=== PATIENT | male | born 1970 | race Caucasian/White ===

== ENCOUNTER 2018-04-01 16:53 | Inpatient (IN) | payer MEDICARE, MEDICAID ==
--- NOTE | 2018-04-01 17:38 | ED ---
Psych HPI - General Chief Complaint: Psychiatric Symptoms Stated Complaint: EPS eval Time Seen by Provider: 04/01/18 17:22 Source: patient, police, EMS, RN notes reviewed Mode of arrival: wheelchair - History of Present Illness Initial Comments: This a 48-year-old male history of bipolar disorder and schizophrenia who is brought in by police and petitioned because of threatening behavior throwing things. He's been threatening staff members. He's been hearing voices. He is here under petition. He does have a history of alcohol abuse and encephalopathy. No fevers chills nausea vomiting sweats. He's been in the [facility] home for just several days apparently. MD Complaint: other - Related Data Home Medications Medication Instructions Recorded Confirmed LORazepam [Ativan] 2 mg PO BID PRN 04/02/18 04/02/18 [place] Carbonate 300 mg PO TID@0600,1400,199904/02/18 04/02/18 Multivitamins, Thera [Multivitamin 1 tab PO DAILY@0600 04/02/18 04/02/18 (formulary)] OLANZapine [ZyPREXA] 20 mg PO BID@0600,1800 04/02/18 04/02/18 clonazePAM [KlonoPIN] 1 mg PO TID@0600,1400,199904/02/18 04/02/18 traMADol HCL [Ultram] 50 mg PO BID PRN 04/02/18 04/02/18 traZODone HCL 50 mg PO HS@1999 PRN 04/02/18 04/02/18 Allergies Allergy/AdvReac Type Severity Reaction Status Date / Time divalproex sodium Allergy Unknown Verified 04/02/18 07:28 [From Depakote] ibuprofen Allergy Unknown Verified 04/02/18 07:28 Review of Systems ROS Statement: Those systems with pertinent positive or pertinent negative responses have been documented in the HPI. ROS Other: All systems not noted in ROS Statement are negative. Past Medical History Past Medical History: No Reported History History of Any Multi-Drug Resistant Organisms: None Reported Additional Past Surgical History / Comment(s): Cholostomy Past Psychological History: Bipolar, Schizophrenia Smoking Status: Unknown if ever smoked Past Alcohol Use History: None Reported Past Drug Use History: None Reported General Exam - General Exam Comments Initial Comments: This is a well-developed well-nourished awake alert male who does demonstrate evidence of flight of ideas Limitations: no limitations General appearance: alert, anxious Head exam: Present: atraumatic, normocephalic, normal inspection Eye exam: Present: normal appearance, PERRL, EOMI. Absent: scleral icterus, conjunctival injection, periorbital swelling ENT exam: Present: normal exam, mucous membranes moist Neck exam: Present: normal inspection. Absent: tenderness, meningismus, lymphadenopathy Respiratory exam: Present: normal lung sounds bilaterally. Absent: respiratory distress, wheezes, rales, rhonchi, stridor Cardiovascular Exam: Present: regular rate, normal rhythm, normal heart sounds. Absent: systolic murmur, diastolic murmur, rubs, gallop, clicks GI/Abdominal exam: Present: soft, normal bowel sounds. Absent: distended, tenderness, guarding, rebound, rigid Extremities exam: Present: normal inspection, full ROM, normal capillary refill. Absent: tenderness, pedal edema, joint swelling, calf tenderness Back exam: Present: normal inspection Neurological exam: Present: alert, oriented X3, CN II-XII intact Psychiatric exam: Present: anxious, manic, other (Flight of ideas) Skin exam: Present: warm, dry, intact, normal color. Absent: rash Course Vital Signs 04/01/18 04/01/18 04/02/18 17:19 21:43 02:28 Temperature 98 F Pulse Rate 85 Respiratory 18 17 16 Rate Blood Pressure 139/90 O2 Sat by Pulse 95 Oximetry 04/02/18 04/03/18 04/03/18 07:04 14:48 18:49 Temperature 98.0 F Pulse Rate 80 88 70 Respiratory 18 18 18 Rate Blood Pressure 133/80 153/90 151/85 O2 Sat by Pulse 98 95 95 Oximetry 04/04/18 04/04/18 09:29 15:50 Temperature 97.1 F L 98.1 F Pulse Rate 99 88 Respiratory 18 18 Rate Blood Pressure 150/61 142/86 O2 Sat by Pulse 98 98 Oximetry - Reevaluation(s) Reevaluation #1: 04/01/18 20:07 The patient became increasingly aggressive did require chemical sedation. Additionally I did fill out a clinical certification on the patient. Petition. Medical Decision Making - Medical Decision Making The patient has been in the emergency department for several days pending attempts at transfer. No beds are available patient will be admitted here. I did fill out a new clinical certificate. - Lab Data Result diagrams: 04/03/18 13:25 Lab Results 04/01/18 04/01/18 04/01/18 Range/Units 18:20 18:20 18:20 Sodium 136 L (137-145) mmol/L Potassium 4.1 (3.5-5.1) mmol/L Chloride 105 (98-107) mmol/L Carbon Dioxide 24 (22-30) mmol/L Anion Gap 7 mmol/L BUN 10 (9-20) mg/dL Creatinine 1.50 H (0.66-1.25) mg/dL Est GFR (CKD-EPI)AfAm 64 (>60 ml/min/1.73 sqM) Est GFR (CKD-EPI)NonAf 55 (>60 ml/min/1.73 sqM) Glucose 95 (74-99) mg/dL Calcium 9.1 (8.4-10.2) mg/dL Total Bilirubin 0.2 (0.2-1.3) mg/dL AST 16 L (17-59) U/L ALT 22 (21-72) U/L Alkaline Phosphatase 62 (38-126) U/L Ammonia 10 (<30) umol/L Total Protein 6.1 L (6.3-8.2) g/dL Albumin 3.7 (3.5-5.0) g/dL Lipase 83 (23-300) U/L Urine Opiates Screen Not Detected (NotDetected) Ur Oxycodone Screen Not Detected (NotDetected) Urine Methadone Screen Not Detected (NotDetected) Ur Propoxyphene Screen Not Detected (NotDetected) Ur Barbiturates Screen Not Detected (NotDetected) U Tricyclic Antidepress Not Detected (NotDetected) Ur Phencyclidine Scrn Not Detected (NotDetected) Ur Amphetamines Screen Not Detected (NotDetected) U Methamphetamines Scrn Not Detected (NotDetected) U Benzodiazepines Scrn Detected H (NotDetected) [place] 0.9 mmol/L Urine Cocaine Screen Not Detected (NotDetected) U Marijuana (THC) Screen Not Detected (NotDetected) 04/03/18 Range/Units 13:25 Sodium 138 (137-145) mmol/L Potassium 4.4 (3.5-5.1) mmol/L Chloride 107 (98-107) mmol/L Carbon Dioxide 20 L (22-30) mmol/L Anion Gap 11 mmol/L BUN 16 (9-20) mg/dL Creatinine 0.99 (0.66-1.25) mg/dL Est GFR (CKD-EPI)AfAm >90 (>60 ml/min/1.73 sqM) Est GFR (CKD-EPI)NonAf >90 (>60 ml/min/1.73 sqM) Glucose 127 H (74-99) mg/dL Calcium 9.5 (8.4-10.2) mg/dL Total Bilirubin 0.3 (0.2-1.3) mg/dL AST 21 (17-59) U/L ALT 17 L (21-72) U/L Alkaline Phosphatase 63 (38-126) U/L Ammonia (<30) umol/L Total Protein 7.0 (6.3-8.2) g/dL Albumin 4.4 (3.5-5.0) g/dL Lipase (23-300) U/L Urine Opiates Screen (NotDetected) Ur Oxycodone Screen (NotDetected) Urine Methadone Screen (NotDetected) Ur Propoxyphene Screen (NotDetected) Ur Barbiturates Screen (NotDetected) U Tricyclic Antidepress (NotDetected) Ur Phencyclidine Scrn (NotDetected) Ur Amphetamines Screen (NotDetected) U Methamphetamines Scrn (NotDetected) U Benzodiazepines Scrn (NotDetected) [place] 0.3 mmol/L Urine Cocaine Screen (NotDetected) U Marijuana (THC) Screen (NotDetected) Disposition Clinical Impression: Acute psychosis, Schizophrenia Disposition: TRANSFER TO PSYCH HOSP/UNIT Condition: Stable
[2018-04-01 18:36] LABS: Albumin 3.7 g/dL (3.5-5.0); Calcium 9.1 mg/dL (8.4-10.2); Lithium 0.9 mmol/L; Potassium 4.1 mmol/L (3.5-5.1); Total Bilirubin 0.2 mg/dL (0.2-1.3); Total Protein 6.1 g/dL (6.3-8.2)
[2018-04-01 18:39] LABS: Amphetamine Screen,Urine Not Detected (NotDetected); Barbiturate Screen,Urine Not Detected (NotDetected); Benzodiazepines Screen,Urine Detected (NotDetected); Cocaine Screen,Urine Not Detected (NotDetected); Methadone Screen, Urine Not Detected (NotDetected); Opiate Screen,Urine Not Detected (NotDetected); Oxycodone Screen, Urine Not Detected (NotDetected); Phencyclidine Screen,Urine Not Detected (NotDetected); Tricyclic Antidepressant,Urine Not Detected (NotDetected); Urn Cannabinoid Scrn Not Detected (NotDetected)
[2018-04-01] MEDS ORDERED: ZIPRASIDONE 20 MG VIAL IM STA (19:15)
[2018-04-01] MEDS ORDERED: LORazepam 2 MG/ML INJ IM STA (19:15)
[2018-04-02] MEDS ORDERED: LORazepam 2 MG/ML INJ IM STA (08:13)
[2018-04-02] MEDS: SULFAMETHOX-TMP 800-160MG 1 EACH TAB PO SCH (13:23)
[2018-04-03] MEDS: SULFAMETHOX-TMP 800-160MG 1 EACH TAB PO SCH ×3 (06:46→21:20)
[2018-04-03] MEDS ORDERED: NICOTINE 21MG/24HR PATCH TRANSDERM STA (10:21)
[2018-04-03] MEDS ORDERED: LORazepam 1 MG TAB PO STA (11:53)
[2018-04-03] MEDS ORDERED: LORazepam 1 MG TAB PO PRN (12:15)
[2018-04-03] MEDS: OLANZapine 10 MG TAB PO SCH (13:15)
[2018-04-03 14:14] LABS: ALT 17 U/L (21-72); AST 21 U/L (17-59); Albumin 4.4 g/dL (3.5-5.0); Alkaline Phosphatase 63 U/L (38-126); Anion Gap 11 mmol/L; Blood Urea Nitrogen 16 mg/dL (9-20); Calcium 9.5 mg/dL (8.4-10.2); Carbon Dioxide 20 mmol/L (22-30); Chloride 107 mmol/L (98-107); Glucose 127 mg/dL (74-99); Lithium 0.3 mmol/L; Potassium 4.4 mmol/L (3.5-5.1); Sodium 138 mmol/L (137-145); Total Bilirubin 0.3 mg/dL (0.2-1.3)
[2018-04-03] MEDS: clonazePAM 1 MG TAB PO SCH ×3 (16:22→21:21)
[2018-04-04] MEDS: SULFAMETHOX-TMP 800-160MG 1 EACH TAB PO SCH ×2 (09:26→10:40)
[2018-04-04] MEDS: OLANZapine 10 MG TAB PO SCH ×3 (09:26→18:34)
[2018-04-04] MEDS: clonazePAM 1 MG TAB PO SCH ×3 (09:27→20:53)
[2018-04-04] MEDS ORDERED: ACETAMINOPHEN TAB 325 MG TAB PO STA (12:52)
[2018-04-04] MEDS ORDERED: MAGNESIUM HYDROXIDE 2,400 MG/10 ML CUP PO PRN (17:04)
[2018-04-04] MEDS ORDERED: MAG HYDROX/AL HYDROX/SIMETH 30 ML CUP PO PRN (17:04)
[2018-04-04] MEDS ORDERED: ZIPRASIDONE 20 MG VIAL IM PRN (17:04)
[2018-04-04] MEDS ORDERED: traMADol 50 MG TAB PO PRN (17:15)
--- NOTE | 2018-04-04 18:36 | P.HPMEDMHU ---
History of Present Illness H&P Date: 04/04/18 Chief Complaint: wound Patient is a 48-year-old male with a past medical history of a stage IV pressure ulcer with recent flap placement at [facility] and diverting colostomy as well as schizophrenia. Patient was initially seen in the ER brought in by police for aggressive behaviors and has been admitted to the mental health unit. Patient has been residing at an adult foster care. He is a very poor historian. Nursing staff has attempted to contact his guardians but has not received any contact back. Apparently he was at an adult foster care for approximately 2 days after being discharged from [facility] and was admitted for changes in behaviors. Patient seen and examined at bedside. He states that he got his pressure ulcer approximately 3 months ago after laying in a cot for a long time. He was unable to tell me where this occurred at what happened or how long he was laying there for. He states that he then had his flap about 3 weeks ago with a dirt diverting colostomy placed. He wants his colostomy reversed. He states that this was supposed to be done 2 days ago. We talked about how colostomy needs time to heal prior to a reversal. He also talks about how he wants to [facility] for giving him the pressure ulcer. He has very tangential thinking. He denies any cough, cold, fever, flu, nausea, vomiting, shortness of breath, chest pain, palpitations, or weight loss. Review of Systems Pertinent positives and negatives as discussed in HPI, a complete review of systems was performed and all other systems are negative. Past Medical History Additional Past Medical History / Comment(s): Sacral pressure ulcer History of Any Multi-Drug Resistant Organisms: None Reported Additional Past Surgical History / Comment(s): Colostomy, flap for sacral pressure Past Psychological History: Bipolar, Schizophrenia Smoking Status: Unknown if ever smoked Past Alcohol Use History: None Reported, Daily Additional Past Alcohol Use History / Comment(s): 2 24 ounce beers daily Past Drug Use History: None Reported Additional History: Lives at an adult foster care - Past Family History Father History Unknown: Yes Additional Family Medical History / Comment(s): patient does not know medical history Mother History Unknown: Yes Additional Family Medical History / Comment(s): patient does not know medical history Medications and Allergies Home Medications Medication Instructions Recorded Confirmed Type LORazepam [Ativan] 2 mg PO BID PRN 04/02/18 04/02/18 History [place] Carbonate 300 mg PO TID@0600,1399,199904/02/18 04/02/18 History Multivitamins, Thera [Multivitamin 1 tab PO DAILY@0600 04/02/18 04/02/18 History (formulary)] OLANZapine [ZyPREXA] 20 mg PO BID@0600,1800 04/02/18 04/02/18 History clonazePAM [KlonoPIN] 1 mg PO TID@0600,1400,199904/02/18 04/02/18 History traMADol HCL [Ultram] 50 mg PO BID PRN 04/02/18 04/02/18 History traZODone HCL 50 mg PO HS@1999 PRN 04/02/18 04/02/18 History Allergies Allergy/AdvReac Type Severity Reaction Status Date / Time divalproex sodium Allergy Unknown Verified 04/04/18 17:20 [From Depakote] ibuprofen Allergy Unknown Verified 04/04/18 17:20 Physical Exam Osteopathic Statement: *. No significant issues noted on an osteopathic structural exam other than those noted in the History and Physical/Consult. Vitals: Vital Signs Temp Pulse Pulse Resp BP BP Pulse Ox 04/04/18 17:15 98.1 F 75 20 141/87 04/04/18 15:50 98.1 F 88 18 142/86 98 04/04/18 09:29 97.1 F L 99 18 150/61 98 04/03/18 18:49 70 18 151/85 95 General: [non toxic], [no distress], [appears older than stated age], [normal weight] Derm: Large opening with poor wound approximation no odor, no purulent drainage , no exudate, pink wound bed, [no unusual ecchymoses], [warm], [dry] Head: [atraumatic], [normocephalic], [symmetric] Eyes: [EOMI], [no lid lag], [anicteric sclera], [pupils equal round reactive to light] ENT: [Nose and ears atraumatic], [no thrush], [no pharyngeal erythema] Neck: [No thyromegaly], [no cervical lymphadenopathy], [trachea midline], [ supple] Mouth: [no lip lesion], [mucus membranes moist] Cardiovascular: [S1S2 reg], [no murmur], [positive posterior tibial pulse bilateral], [no edema], [capillary refill less than 2 seconds] Lungs: [CTA bilateral], [no rhonchi, no rales] , [no accessory muscle use] Abdominal: [soft], [ nontender to palpation], [no guarding], [no appreciable organomegaly], [normal bowel sounds] Ext: [no gross muscle atrophy], [muscle strength 5 out of 5 in all 4 extremities grossly], [no contractures], Neuro: [ CN II-XI grossly intact], [light touch intact all 4 extremities], [ finger to nose within normal limits], Psych: [Alert], [oriented], [anxious] Cranial Nerve Examination - Cranial Nerves Cranial Nerve II- Optic: Intact Cranial Nerve III- Oculomotor: Intact Cranial Nerve IV- Trochlear: Intact Cranial Nerve V- Trigeminal: Intact Cranial Nerve - Abducens: Intact Cranial Nerve VII- Facial: Intact Cranial Nerve VIII- Auditory: Intact Cranial Nerve IX- Glossopharyngeal: Intact Cranial Nerve X- Vagus: Intact Cranial Nerve XI- Accessory: Intact Cranial Nerve XII- Hypoglossal: Intact Results CBC & Chem 7: 04/03/18 13:25 Thrombosis Risk Factor Assmnt - DVT/VTE Prophylaxis DVT/VTE Prophylaxis: Low risk, early ambulation encouraged Assessment and Plan Assessment: Large stage IV sacral wound with apparent recent flap -Wound care consult -Offload -Off the phone -Check CBC and CMP -Assess nutritional status and poor by mouth intake then consider additional protein supplementation such as [place] Schizophrenia with aggressive behaviors -Your psych management Tobacco abuse -Cessation -Nicotine replacement Daily alcohol use -Management as per psych -Start thiamine supplementation -Multivitamin Social stressors -Nursing will continue to attempt to get a hold of guardian to verify past medical history status -Medications reviewed and he appears to only be on medications to treat his mental health We'll plan on reevaluating patient in a.m. and reevaluating repeat lab work. Thank you for allowing us to participate in the care of this patient. Do not hesitate to contact us with questions. Someone can be reached from the [facility] hospitalist group at all hours of the day at [phone].
[2018-04-04 19:33] LABS: Anisocytosis Slight; HCT 34.3 % (39.0-53.0); HGB 10.6 gm/dL (13.0-17.5); Hypochromasia Marked; MCH 28.3 pg (25.0-35.0); MCHC 30.8 g/dL (31.0-37.0); MCV 91.8 fL (80.0-100.0); Mean Platelet Volume 8.5; Platelet Count 215 k/uL (150-450); RBC 3.74 m/uL (4.30-5.90); RDW 16.1 % (11.5-15.5); WBC 4.9 k/uL (3.8-10.6)
[2018-04-04 19:40] LABS: Albumin 4.1 g/dL (3.5-5.0); Calcium 9.6 mg/dL (8.4-10.2); Total Bilirubin 0.3 mg/dL (0.2-1.3); Total Protein 6.6 g/dL (6.3-8.2)
[2018-04-04] MEDS: ACETAMINOPHEN TAB 325 MG TAB PO PRN (20:52)
[2018-04-04] MEDS: LITHIUM CARBONATE 300 MG CAP PO SCH (20:54)
[2018-04-05 00:23] LABS: Cholesterol 145 mg/dL (<200); HDL Cholesterol 57 mg/dL (40-60); LDL Cholesterol,Calculated 73 mg/dL (0-99); Triglycerides 74 mg/dL (<150)
[2018-04-05] MEDS: OLANZapine 10 MG TAB PO SCH ×2 (06:32→17:05)
[2018-04-05] MEDS: clonazePAM 1 MG TAB PO SCH ×3 (06:33→20:17)
[2018-04-05] MEDS: MULTIVITAMINS, THERA 1 EACH TAB PO SCH ×2 (06:33→06:36)
[2018-04-05] MEDS: LITHIUM CARBONATE 300 MG CAP PO SCH (06:33)
[2018-04-05] MEDS ORDERED: LORazepam 2 MG/ML INJ IM STA (08:49)
--- NOTE | 2018-04-05 10:58 | P.HP ---
Psychiatric H&P - . History & Physical: Allergies Allergy/AdvReac Type Severity Reaction Status Date / Time divalproex sodium Allergy Unknown Verified 04/04/18 17:20 [From [facility]] ibuprofen Allergy Unknown Verified 04/04/18 17:20 Vital Signs Temp 97.7 F 04/05/18 06:40 Pulse 71 04/05/18 06:40 Resp 16 04/05/18 06:40 BP 119/72 04/05/18 06:40 Pulse Ox 98 04/04/18 15:50 Laboratory Last Values WBC 4.9 k/uL (3.8-10.6) 04/04/18 19:20 RBC 3.74 m/uL (4.30-5.90) L 04/04/18 19:20 Hgb 10.6 gm/dL (13.0-17.5) L 04/04/18 19:20 Hct 34.3 % (39.0-53.0) L 04/04/18 19:20 MCV 91.8 fL (80.0-100.0) 04/04/18 19:20 MCH 28.3 pg (25.0-35.0) 04/04/18 19:20 MCHC 30.8 g/dL (31.0-37.0) L 04/04/18 19:20 RDW 16.1 % (11.5-15.5) H 04/04/18 19:20 Plt Count 215 k/uL (150-450) 04/04/18 19:20 Hypochromasia Marked 04/04/18 19:20 Anisocytosis Slight 04/04/18 19:20 Sodium 140 mmol/L (137-145) 04/04/18 19:20 Potassium 5.0 mmol/L (3.5-5.1) 04/04/18 19:20 Chloride 110 mmol/L (98-107) H 04/04/18 19:20 Carbon Dioxide 21 mmol/L (22-30) L 04/04/18 19:20 Anion Gap 9 mmol/L 04/04/18 19:20 BUN 19 mg/dL (9-20) 04/04/18 19:20 Creatinine 1.32 mg/dL (0.66-1.25) H 04/04/18 19:20 Est GFR (CKD-EPI)AfAm 75 (>60 ml/min/1.73 sqM) 04/04/18 19:20 Est GFR (CKD-EPI)NonAf 65 (>60 ml/min/1.73 sqM) 04/04/18 19:20 Glucose 75 mg/dL (74-99) 04/04/18 19:20 Calcium 9.6 mg/dL (8.4-10.2) 04/04/18 19:20 Total Bilirubin 0.3 mg/dL (0.2-1.3) 04/04/18 19:20 AST 21 U/L (17-59) 04/04/18 19:20 ALT 16 U/L (21-72) L 04/04/18 19:20 Alkaline Phosphatase 57 U/L (38-126) 04/04/18 19:20 Ammonia 10 umol/L (<30) 04/01/18 18:20 Total Protein 6.6 g/dL (6.3-8.2) 04/04/18 19:20 Albumin 4.1 g/dL (3.5-5.0) 04/04/18 19:20 Triglycerides 74 mg/dL (<150) 04/03/18 13:25 Cholesterol 145 mg/dL (<200) 04/03/18 13:25 LDL Cholesterol, Calc 73 mg/dL (0-99) 04/03/18 13:25 HDL Cholesterol 57 mg/dL (40-60) 04/03/18 13:25 Lipase 83 U/L (23-300) 04/01/18 18:20 Urine Opiates Screen Not Detected (NotDetected) 04/01/18 18:20 Ur Oxycodone Screen Not Detected (NotDetected) 04/01/18 18:20 Urine Methadone Screen Not Detected (NotDetected) 04/01/18 18:20 Ur Propoxyphene Screen Not Detected (NotDetected) 04/01/18 18:20 Ur Barbiturates Screen Not Detected (NotDetected) 04/01/18 18:20 U Tricyclic Antidepress Not Detected (NotDetected) 04/01/18 18:20 Ur Phencyclidine Scrn Not Detected (NotDetected) 04/01/18 18:20 Ur Amphetamines Screen Not Detected (NotDetected) 04/01/18 18:20 U Methamphetamines Scrn Not Detected (NotDetected) 04/01/18 18:20 U Benzodiazepines Scrn Detected (NotDetected) H 04/01/18 18:20 [place] 0.3 mmol/L 04/03/18 13:25 Urine Cocaine Screen Not Detected (NotDetected) 04/01/18 18:20 U Marijuana (THC) Screen Not Detected (NotDetected) 04/01/18 18:20 04/05/18 10:04 IDENTIFYING DATA: This patient is a 48-year-old male who was admitted to the mental health unit through the emergency room due to acute symptoms of psychosis and agitation HPI: The patient presents with a petition completed by a nurse stating "verbal aggression towards others, throwing objects and food pacing the floor, wandering off and not redirectable. Admits to hearing voices, cursing at staff , verbally aggressive when being redirected, touching others threatening actions , pounding on doors yelling at me in call the police I just escape from a mental institution" the patient is found lying in his bed this morning. Already this morning he hasn't demonstrated acute agitation. He reportedly lunged at a male staff and had been threatening towards others. Security was called the patient received injectable Geodon and Ativan. The patient is currently on one-to-one supervision with security. The patient tolerates several questions then indicates he's done answering questions and he just needs answers. He states that he is seeking serenity. He states he wants his freedom. Erroneously he states that he is his own guardian. We have limited information on him but we do know that he has recently resided at an [facility] home in [place]. We were informed that he has had multiple inpatient psychiatric hospitalizations throughout his life. He is most recently prescribed Zyprexa 20 mg twice daily lithium carbonate 300 mg 3 times daily Klonopin 1 mg 3 times daily. We have no further information as to who is prescribing those medications or their efficacy. We are unaware of any recent changes to those medications. I was unable to screen the patient for presence of auditory or visual hallucinations he did not discuss any further specific delusions. I am unaware of any history of hypomania or ariel. PMH: The patient currently has a colostomy. He required abdominal surgery as a result of a severe sacral decubitus ulcer. We were informed that he had some surgical intervention on the ulcer on 03/23/2018. The patient is unable to speak to these medical comorbidities other than to say he wants the reversal done. ALLERGIES: Depakote, ibuprofen MEDICATIONS: As above CHEMICAL DEPENDENCY HISTORY: Unknown FAMILY PSYCHIATRIC HISTORY: Unknown FAMILY CHEMICAL DEPENDENCY HISTORY: Unknown SOCIAL HISTORY: Most recently the patient has been residing at an [facility] home in [place], he states he had only been there for 3 days. He is an unreliable historian. We know that he does have a guardian and nursing has been in contact with that individual. MENTAL STATUS EXAM: The patient is a tall male appearing older than his stated age. He has long unkempt hair and a long cody. He is dressed in hospital attire. Earlier this morning he was observed ambulating slowly with no arm swing. During our brief verbal interaction the patient was lying in bed on his right side he would turn to the left intermittently to make some eye contact. He has demonstrated an irritable aggressive affect this morning. The inject we'll medication seems to have calmed him at least mildly. During our brief interaction he made no threatening statements and he made no threatening gestures. Insight and judgment are poor. He is demonstrating no loose associations or flight of ideas. He does appear to be experiencing significant symptoms of psychosis in the form of delusional thoughts. He does not indicate whether or not he is experiencing hallucinations. He would not participate in any cognitive questioning. STRENGTHS/WEAKNESSES: Strengths: He has an appointed guardian and I assume income weaknesses: Acute symptoms of psychosis medical comorbidity INTELLECTUAL FUNCTIONING: Difficult to assess based on limited interaction so far I would estimate below average IMPRESSIONS: [] 1. Schizophrenia versus schizoaffective disorder 2. History of bowel resection with current colostomy, reported wound on his posterior 3. Acute psychotic symptoms significantly impairing psychosocial function and limiting placement option PLAN: The patient has been admitted to the mental health unit in voluntarily. I will complete a second clinical certificate. The patient is not able to participate in a meaningful discussion to discuss his current symptoms and treatment options. He has been physically aggressive. We will require one-to- one supervision with security at this time. His creatinine continues to elevate I will discontinue the lithium. He will continue on the Zyprexa 20 mg twice daily and the Klonopin 1 mg 3 times daily. We will add a differential to the CBC already drawn. I plan to initiate clozapine if the differential permits. He will be seen by internal medicine and infectious disease. We will look further recommendations. We discussed strategies for verbally redirecting him during our treatment team meeting. 04/05/18 10:55
[2018-04-05] MEDS: NICOTINE 21MG/24HR PATCH TRANSDERM SCH (11:05)
[2018-04-05 11:25] LABS: Eosinophils # (M) 0.05 k/uL (0-0.7); Lymphocytes # (M) 1.96 k/uL (1.0-4.8); Monocytes # (M) 0.34 k/uL (0-1.0); Neutrophils # (M) 2.55 k/uL (1.3-7.7); Neutrophils % (M) 52 %; Nucleated Red Blood Cells 0 /100 WBC (0-0); Total Cells Counted 100
[2018-04-05 14:17] LABS: Hemoglobin A1C 5.2 % (4.0-6.0)
[2018-04-05] MEDS: ACETAMINOPHEN TAB 325 MG TAB PO PRN ×2 (14:28→20:18)
--- NOTE | 2018-04-05 15:00 | P.PN ---
Subjective Progress Note Date: 04/05/18 Principal diagnosis: wound Patient is a 48-year-old male with a past medical history of a stage IV pressure ulcer with recent flap placement at [facility] and diverting colostomy as well as schizophrenia. Patient was initially seen in the ER brought in by police for aggressive behaviors and has been admitted to the mental health unit. Patient seen and examined at bedside. He has no complaints today. He states he is thirsty and hungry because the food. Denies any fevers, cold, cough, shortness of breath, or increased pain. Objective - Vital Signs Vital signs: Vital Signs Temp 97.7 F 04/05/18 06:40 Pulse 71 04/05/18 06:40 Resp 16 04/05/18 06:40 BP 119/72 04/05/18 06:40 Pulse Ox 98 04/04/18 15:50 Intake & Output 04/04/18 04/05/18 04/05/18 18:59 06:59 18:59 Weight 81.647 kg - Exam General: non toxic, no distress, appears older than stated age, normal weight Derm: Large opening with poor wound approximation no odor, no purulent drainage , no exudate, pink wound bed, no unusual ecchymoses, warm, dry Head: atraumatic, normocephalic, symmetric Cardiovascular: S1S2 reg, no murmur, positive posterior tibial pulse bilateral, no edema, capillary refill less than 2 seconds Lungs: CTA bilateral, no rhonchi, no rales , no accessory muscle use Abdominal: soft, nontender to palpation, no guarding, no appreciable organomegaly, normal bowel sounds Ext: no gross muscle atrophy, no contractures, no edema Neuro: CN II-XI grossly intact, no focal neuro deficits Psych: Alert, oriented, anxious - Labs CBC & Chem 7: 04/04/18 19:20 04/04/18 19:20 Labs: Abnormal Lab Results - Last 24 Hours (Table) 04/04/18 04/04/18 Range/Units 19:20 19:20 RBC 3.74 L (4.30-5.90) m/uL Hgb 10.6 L (13.0-17.5) gm/dL Hct 34.3 L (39.0-53.0) % MCHC 30.8 L (31.0-37.0) g/dL RDW 16.1 H (11.5-15.5) % Chloride 110 H (98-107) mmol/L Carbon Dioxide 21 L (22-30) mmol/L Creatinine 1.32 H (0.66-1.25) mg/dL ALT 16 L (21-72) U/L Assessment and Plan Assessment: Large stage IV sacral wound with apparent recent flap and diverting colostomy -Wound care consult -Offload -Optifoam JASPER vs CKD -Creatinine improved from 11 4 and is now 1.32 -Patient did have Bactrim exposure -Encourage oral fluid intake -Repeat BMP in a.m. Schizophrenia with aggressive behaviors -Your psych management Tobacco abuse -Cessation -Nicotine replacement Daily alcohol use -Management as per psych -Start thiamine supplementation -Multivitamin Social stressors -Nursing will continue to attempt to get a hold of guardian to verify past medical history status -Medications reviewed and he appears to only be on medications to treat his mental health Thank you for allowing us to participate in the care of this patient. Do not hesitate to contact us with questions. Someone can be reached from the [facility] hospitalist group at all hours of the day at [phone].
[2018-04-05 18:46] LABS: Basophils % (A) 1 %; Eosinophils # (A) 0.1 k/uL (0-0.7); Eosinophils % (A) 2 %; HGB 10.7 gm/dL (13.0-17.5); Hypochromasia Marked; Lymphocytes # (A) 2.1 k/uL (1.0-4.8); Lymphocytes % (A) 33 %; MCH 27.4 pg (25.0-35.0); MCHC 29.8 g/dL (31.0-37.0); MCV 91.9 fL (80.0-100.0); Mean Platelet Volume 8.7; Monocytes # (A) 0.3 k/uL (0-1.0); Monocytes % (A) 5 %; Neutrophils # (A) 3.6 k/uL (1.3-7.7); Neutrophils % (A) 56 %; Platelet Count 222 k/uL (150-450); RBC 3.92 m/uL (4.30-5.90); WBC 6.3 k/uL (3.8-10.6)
[2018-04-05] MEDS: cloZAPine 25 MG TAB PO SCH (20:17)
[2018-04-05] MEDS ORDERED: HALOPERIDOL LACTATE 5 MG/ML 1 ML VIAL IM STA (20:40)
[2018-04-05] MEDS ORDERED: diphenhydrAMINE 50 MG/ML 1 ML VIAL IM STA (20:41)
[2018-04-05] MEDS ORDERED: HALOPERIDOL LACTATE 5 MG/ML 1 ML VIAL ONE (20:46)
--- NOTE | 2018-04-05 23:16 | P.CONS ---
History of Present Illness - Reason for Consult Consult date: 04/05/18 - Chief Complaint Psychosis - History of Present Illness 48-year-old male with a thin build, unkept features, presents with ongoing difficulties with psychoses. He subsequently is admitted to the psychiatric unit for ongoing care. The patient is a poor historian due to his psychoses but there are some outside records that are reviewed. The patient apparently had some indistinctness-type trauma resulting in a necrotizing infection to his coccyx area with resulting rhabdomyolysis and sepsis. He underwent surgical debridement and eventually a flap graft to the site. He had improvement of his status was transferred to a longterm in the [facility]. The patient apparently had a marked worsening of his underlying psychoses and was transferred to our emergency center and required psychiatric admission. The patient has a significant residual ulceration to his coccyx area and with those concerns the infectious diseases consultation was requested. The patient does not complain of much pain at the site. Actually with the assistance of 2 nurses the site is evaluated, the patient twice during evaluation sits up and eats a cracker. Review of Systems ROS unobtainable: due to mental status Past Medical History Past Medical History: No Reported History Additional Past Medical History / Comment(s): Sacral pressure ulcer History of Any Multi-Drug Resistant Organisms: None Reported Additional Past Surgical History / Comment(s): Colostomy, flap for sacral pressure Past Psychological History: Bipolar, Schizophrenia Smoking Status: Unknown if ever smoked Past Alcohol Use History: None Reported, Daily Additional Past Alcohol Use History / Comment(s): 2 24 ounce beers daily Past Drug Use History: None Reported - Past Family History Father History Unknown: Yes Additional Family Medical History / Comment(s): patient does not know medical history Mother History Unknown: Yes Additional Family Medical History / Comment(s): patient does not know medical history Medications and Allergies Home Medications and Allergies Comment(s): Current Medications Acetaminophen (Tylenol Tab) 650 mg PO Q4HR PRN PRN Reason: Pain/Discomfort Last Admin: 04/05/18 20:18 Dose: 650 mg Al Hydroxide/Mg Hydroxide (Maalox) 30 ml PO Q4HR PRN PRN Reason: GI Upset Clonazepam (Klonopin) 1 mg PO TID@0600,1400,2000 JOSEPH Last Admin: 04/05/18 20:17 Dose: 1 mg Clozapine (Clozaril) 25 mg PO BID [facility] Stop: 04/11/18 23:00 Last Admin: 04/05/18 20:17 Dose: 25 mg Haloperidol Lactate (Haldol) 5 mg IM Q4HR PRN PRN Reason: Agitation or Acute Psychosis Magnesium Hydroxide (Milk Of Magnesia) 2,400 mg PO DAILY PRN PRN Reason: Constipation Multivitamins (Theragran) 1 each PO DAILY@0600 [facility] Last Admin: 04/05/18 06:36 Dose: 1 each Nicotine (Habitrol 21mg/24hr Patch) 1 patch TRANSDERM DAILY [facility] Last Admin: 04/05/18 11:05 Dose: 1 patch Olanzapine (Zyprexa) 20 mg PO BID@0600,1800 [facility] Last Admin: 04/05/18 17:05 Dose: 20 mg Tramadol HCl (Ultram) 50 mg PO BID PRN PRN Reason: Pain Trazodone HCl (Desyrel) 50 mg PO HS@1999 PRN PRN Reason: Insomnia Home Medications Medication Instructions Recorded Confirmed Type LORazepam [Ativan] 2 mg PO BID PRN 04/02/18 04/02/18 History [place] Carbonate 300 mg PO TID@0600,1400,199904/02/18 04/02/18 History Multivitamins, Thera [Multivitamin 1 tab PO DAILY@0600 04/02/18 04/02/18 History (formulary)] OLANZapine [ZyPREXA] 20 mg PO BID@0600,1800 04/02/18 04/02/18 History clonazePAM [KlonoPIN] 1 mg PO TID@0600,1400,199904/02/18 04/02/18 History traMADol HCL [Ultram] 50 mg PO BID PRN 04/02/18 04/02/18 History traZODone HCL 50 mg PO HS@1999 PRN 04/02/18 04/02/18 History Allergies Allergy/AdvReac Type Severity Reaction Status Date / Time divalproex sodium Allergy Unknown Verified 04/04/18 17:20 [From Depakote] ibuprofen Allergy Unknown Verified 04/04/18 17:20 Physical Exam Vitals: Vital Signs Temp Pulse Resp BP 04/05/18 20:22 98.2 F 86 16 139/93 04/05/18 15:54 78 149/83 04/05/18 06:40 97.7 F 71 16 119/72 Intake and Output 04/05/18 04/05/18 04/05/18 06:59 14:59 22:59 Other: Weight 81.647 kg 48-year-old male of thin build, long unkept here, long unkempt cody. However has had hygiene occurring since his admission to the unit. HEENT: Anicteric conjunctiva are pink and moist nasal mucosa grossly intact without significant lesions, there is no thrush. Poor dentition Neck: The neck is supple without significant lymphadenopathy or thyromegaly. Lungs: Symmetrical air entry with expiratory wheezes no rosario bronchial sounds Heart: Regular rate and rhythm with an audible S1-S2, no S3 no S4. There is no significant murmur click or rub, PMI was nondisplaced. Abdomen: Positive bowel sounds soft and nontender without palpable masses or organomegaly. There was no guarding or rebound. Extremities: The upper and lower extremities have no significant edema peripheral pulses are 2+ and symmetric Neuro: The patient is awake and alert he is able to ambulate, understands that he is at hospital. He relates that the nighttime nurse is nice to him. The patient is calm at this point in time Skin the patient is evaluated at the nurses present and there is evidence of the recent significant surgical intervention to the coccyx where there appears to have been a significant debridement and then flap graft. At the more cephalad aspect of the ulcer is evidence of a couple of sutures that have likely pulled through. However there is evidence of a graft material of some sort that has been applied to the extensive ulceration. It has a small amount of slough that is present that is not unusual with graft-type material, especially if it is an engineered graft. Results CBC & Chem 7: 04/05/18 18:17 04/04/18 19:20 Labs: Abnormal Lab Results - Last 24 Hours (Table) 04/05/18 Range/Units 18: RBC 3.92 L (4.30-5.90) m/uL Hgb 10.7 L (13.0-17.5) gm/dL Hct 36.0 L (39.0-53.0) % MCHC 29.8 L (31.0-37.0) g/dL RDW 16.0 H (11.5-15.5) % Laboratory Results WBC 6.3 k/uL (3.8-10.6) 04/05/18 18:17 RBC 3.92 m/uL (4.30-5.90) L 04/05/18 18:17 Hgb 10.7 gm/dL (13.0-17.5) L 04/05/18 18:17 Hct 36.0 % (39.0-53.0) L 04/05/18 18:17 MCV 91.9 fL (80.0-100.0) 04/05/18 18:17 MCH 27.4 pg (25.0-35.0) 04/05/18 18:17 MCHC 29.8 g/dL (31.0-37.0) L 04/05/18 18:17 RDW 16.0 % (11.5-15.5) H 04/05/18 18:17 Plt Count 222 k/uL (150-450) 04/05/18 18:17 Neutrophils % 56 % 04/05/18 18:17 Neutrophils % (Manual) 52 % 04/04/18 19:20 Lymphocytes % 33 % 04/05/18 18:17 Lymphocytes % (Manual) 40 % 04/04/18 19:20 Monocytes % 5 % 04/05/18 18:17 Monocytes % (Manual) 7 % 04/04/18 19:20 Eosinophils % 2 % 04/05/18 18:17 Eosinophils % (Manual) 1 % 04/04/18 19:20 Basophils % 1 % 04/05/18 18:17 Neutrophils # 3.6 k/uL (1.3-7.7) 04/05/18 18:17 Neutrophils # (Manual) 2.55 k/uL (1.3-7.7) 04/04/18 19:20 Lymphocytes # 2.1 k/uL (1.0-4.8) 04/05/18 18:17 Lymphocytes # (Manual) 1.96 k/uL (1.0-4.8) 04/04/18 19:20 Monocytes # 0.3 k/uL (0-1.0) 04/05/18 18:17 Monocytes # (Manual) 0.34 k/uL (0-1.0) 04/04/18 19:20 Eosinophils # 0.1 k/uL (0-0.7) 04/05/18 18:17 Eosinophils # (Manual) 0.05 k/uL (0-0.7) 04/04/18 19:20 Basophils # 0.0 k/uL (0-0.2) 04/05/18 18:17 Nucleated RBCs 0 /100 WBC (0-0) 04/04/18 19:20 Hypochromasia Marked 04/05/18 18:17 Anisocytosis Slight 04/04/18 19:20 Sodium 140 mmol/L (137-145) 04/04/18 19:20 Potassium 5.0 mmol/L (3.5-5.1) 04/04/18 19:20 Chloride 110 mmol/L (98-107) H 04/04/18 19:20 Carbon Dioxide 21 mmol/L (22-30) L 04/04/18 19:20 Anion Gap 9 mmol/L 04/04/18 19:20 BUN 19 mg/dL (9-20) 04/04/18 19:20 Creatinine 1.32 mg/dL (0.66-1.25) H 04/04/18 19:20 Est GFR (CKD-EPI)AfAm 75 (>60 ml/min/1.73 sqM) 04/04/18 19:20 Est GFR (CKD-EPI)NonAf 65 (>60 ml/min/1.73 sqM) 04/04/18 19:20 Glucose 75 mg/dL (74-99) 04/04/18 19:[address] Glu mg/dL 103 04/03/18 13:25 Hemoglobin A1c 5.2 % (4.0-6.0) 04/03/18 13:25 Calcium 9.6 mg/dL (8.4-10.2) 04/04/18 19:20 Total Bilirubin 0.3 mg/dL (0.2-1.3) 04/04/18 19:20 AST 21 U/L (17-59) 04/04/18 19:20 ALT 16 U/L (21-72) L 04/04/18 19:20 Alkaline Phosphatase 57 U/L (38-126) 04/04/18 19:20 Ammonia 10 umol/L (<30) 04/01/18 18:20 Total Protein 6.6 g/dL (6.3-8.2) 04/04/18 19:20 Albumin 4.1 g/dL (3.5-5.0) 04/04/18 19:20 Triglycerides 74 mg/dL (<150) 04/03/18 13:25 Cholesterol 145 mg/dL (<200) 04/03/18 13:25 LDL Cholesterol, Calc 73 mg/dL (0-99) 04/03/18 13:25 HDL Cholesterol 57 mg/dL (40-60) 04/03/18 13:25 Lipase 83 U/L (23-300) 04/01/18 18:20 Urine Opiates Screen Not Detected (NotDetected) 04/01/18 18:20 Ur Oxycodone Screen Not Detected (NotDetected) 04/01/18 18:20 Urine Methadone Screen Not Detected (NotDetected) 04/01/18 18:20 Ur Propoxyphene Screen Not Detected (NotDetected) 04/01/18 18:20 Ur Barbiturates Screen Not Detected (NotDetected) 04/01/18 18:20 U Tricyclic Antidepress Not Detected (NotDetected) 04/01/18 18:20 Ur Phencyclidine Scrn Not Detected (NotDetected) 04/01/18 18:20 Ur Amphetamines Screen Not Detected (NotDetected) 04/01/18 18:20 U Methamphetamines Scrn Not Detected (NotDetected) 04/01/18 18:20 U Benzodiazepines Scrn Detected (NotDetected) H 04/01/18 18:20 [place] 0.3 mmol/L 04/03/18 13:25 Urine Cocaine Screen Not Detected (NotDetected) 04/01/18 18:20 U Marijuana (THC) Screen Not Detected (NotDetected) 04/01/18 18:20 Assessment and Plan (1) Acute psychosis Current Visit: Yes Status: Acute Code(s): F23 - BRIEF PSYCHOTIC DISORDER SNOMED Code(s): 57071638 (2) Pressure ulcer of coccygeal region, stage 4 Narrative/Plan: 48-year-old male presents to the emergency center from the longterm for worsening of his underlying psychoses. Information is obtained from the outside hospital about his recent hospital stay in intervention that appears to include a flap graft to the coccyx area. The areas evaluated appears to have a graft material over the site possibly a bioengineered skin substitute. He appears to be sutured into place and is allowing some significant improvement to the area. There is some slough in the site will be treated with the therahoney dressing in the optifoam dressing. The patient is ambulatory and should hopefully be able to lay prone or side to side while he is sleeping to have pressure off of this site. A specialty bed is not a possibility in his current unit that is required for his safety. The site does not appear to be infected. If he is going to remain in the community after his discharge it is possible, we would be able to follow-up in the wound healing Center especially once we receive some further information from the outside hospital. If he allows a multivitamin that may help healing. Current Visit: Yes Status: Acute Code(s): L89.154 - PRESSURE ULCER OF SACRAL REGION, STAGE 4 SNOMED Code(s): 670284557
[2018-04-06] MEDS: MULTIVITAMINS, THERA 1 EACH TAB PO SCH ×3 (05:52→11:35)
[2018-04-06] MEDS: clonazePAM 1 MG TAB PO SCH ×5 (05:52→20:25)
[2018-04-06] MEDS: OLANZapine 10 MG TAB PO SCH ×4 (05:53→18:50)
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
[2018-04-06] MEDS: NICOTINE 21MG/24HR PATCH TRANSDERM SCH (11:37)
[2018-04-06] MEDS: cloZAPine 25 MG TAB PO SCH ×2 (11:39→20:26)
[2018-04-06] MEDS: ACETAMINOPHEN TAB 325 MG TAB PO PRN (16:04)
[2018-04-06] MEDS: traZODone HCL 50 MG TAB PO PRN (20:25)
[2018-04-07] MEDS: OLANZapine 10 MG TAB PO SCH ×2 (06:57→17:06)
[2018-04-07] MEDS: clonazePAM 1 MG TAB PO SCH ×3 (06:57→21:31)
[2018-04-07] MEDS: MULTIVITAMINS, THERA 1 EACH TAB PO SCH (06:57)
[2018-04-07] MEDS: NICOTINE 21MG/24HR PATCH TRANSDERM SCH (09:09)
[2018-04-07] MEDS: cloZAPine 25 MG TAB PO SCH ×2 (09:10→21:31)
--- NOTE | 2018-04-07 10:16 | P.PN ---
Progress Note - Text Interval history: The patient is found in the hallway. Reluctantly he follows me to the library to speak. He continues to have one-to-one supervision was staff. The patient continues to be easily agitated. He described having dry mouth he was given a couple water. He became agitated and threw it in the garbage. We are not able to hold a conversation regarding medication. Mental status exam: The patient is alert he is observed ambulating in the hallway. He remains seated for only a short time before getting up and leaving. He is dressed in his own clothing. He has a disheveled appearance his hair is unkempt. Eye contact is poor. He has a bland affect. He verbalizes feelings of frustration. Staff are unable to verbally redirect him so far this morning. Insight and judgment are poor. He appears to have a psychotic thought content. Thought process is not well organized. He demonstrates mild resting tremor of his right upper extremity. We were not able to go through any orientation questions due to his lack of participation. Plan: The patient remains acutely symptomatic. He requires one-to-one supervision still. I will titrate the clozapine 50 mg twice daily. As we titrate that dose we will plan to reduce the Zyprexa. Haldol is being used as needed for acute agitation or acute psychosis. Vital signs reviewed. The patient requires psychiatric hospitalization for his acute symptoms.
[2018-04-07] MEDS: ACETAMINOPHEN TAB 325 MG TAB PO PRN ×2 (10:57→14:18)
[2018-04-07] MEDS: HALOPERIDOL 5 MG TAB PO PRN (11:21)
[2018-04-07] MEDS: BENZTROPINE MESYLATE 1 MG TAB PO PRN (17:07)
[2018-04-07] MEDS: traZODone HCL 50 MG TAB PO PRN (21:32)
[2018-04-08] MEDS: LORazepam 2 MG/ML INJ IM PRN (01:34)
[2018-04-08] MEDS: HALOPERIDOL LACTATE 5 MG/ML 1 ML VIAL IM PRN (01:34)
[2018-04-08] MEDS: BENZTROPINE MESYLATE 1 MG TAB PO PRN (01:38)
[2018-04-08] MEDS: MULTIVITAMINS, THERA 1 EACH TAB PO SCH (07:05)
[2018-04-08] MEDS: clonazePAM 1 MG TAB PO SCH ×3 (07:05→21:07)
[2018-04-08] MEDS: OLANZapine 10 MG TAB PO SCH ×2 (07:05→17:05)
[2018-04-08] MEDS: NICOTINE 21MG/24HR PATCH TRANSDERM SCH (10:26)
[2018-04-08] MEDS: cloZAPine 25 MG TAB PO SCH ×2 (10:26→21:07)
--- NOTE | 2018-04-08 13:37 | P.PN ---
Progress Note - Text The patient's is in his room sleeping. He has been sleeping throughout the entire morning into early afternoon. Staff report that he did not sleep last night and has not been sleeping the previous night. He did receive a Haldol and Ativan injection and complied with the oral Clozaril. The patient remains on one-to-one supervision was security staff. Mental status exam: The patient is observed in his room sleeping in bed. He is resting comfortably in no observable distress. Vital signs are reviewed they' re within normal limits. Plan: The patient will continue on his current psychotropic medications. We decided to allow him to sleep throughout the morning and afternoon as this may help with his agitation and thought disorganization later. We will monitor him for safety we will continue one-to-one supervision. He requires continued psychiatric hospitalization for his agitation and acute psychosis.
[2018-04-08] MEDS: HALOPERIDOL 5 MG TAB PO PRN (17:54)
[2018-04-08] MEDS: traZODone HCL 50 MG TAB PO PRN (21:07)
[2018-04-08] MEDS: ACETAMINOPHEN TAB 325 MG TAB PO PRN (21:41)
[2018-04-09] MEDS: clonazePAM 1 MG TAB PO SCH ×3 (07:17→20:37)
[2018-04-09] MEDS: OLANZapine 10 MG TAB PO SCH ×2 (07:17→17:11)
[2018-04-09] MEDS: MULTIVITAMINS, THERA 1 EACH TAB PO SCH (07:17)
[2018-04-09] MEDS: cloZAPine 25 MG TAB PO SCH (08:25)
[2018-04-09] MEDS: NICOTINE 21MG/24HR PATCH TRANSDERM SCH (08:25)
[2018-04-09] MEDS: HALOPERIDOL 5 MG TAB PO PRN ×2 (10:29→16:24)
--- NOTE | 2018-04-09 11:02 | P.PN ---
Progress Note - Text Interval history: The patient is found in the hallway he continues to have one- to-one supervision was security. He was offered an opportunity to meet with me in the library and he refused. Staff report that the patient is still easily agitated but has been verbally redirectable. He did get some sleep last evening he slept most of the morning yesterday. He has been complying with his psychotropic medication area he continues to appear easily agitated and acutely psychotic area during treatment team meeting we discussed having regular staff do the one-to-one supervision versus security as there has been less aggressive behavior and we will proceed with that trial. Mental status exam: The patient is alert he is ambulating in the hallway he has a disheveled appearance. He makes brief eye contact. He asks if we are going to meet I indicate that we can meet and then he refuses. The patient continues to appear irritable he is easily agitated. Thought process is disorganized. He continues to demonstrate a psychotic thought content. Insight and judgment are poor. He demonstrates no involuntary repetitive movements. He demonstrates some psychomotor slowing with gait but no ataxia. Plan: The patient will continue on his current medication however I will titrate the Clozaril further so that the morning dose is 50 mg in the morning the evening dose is 100 mg. We will continue him on his other psychotropic medications. Our plan will be to eventually reduce the Zyprexa as the Clozaril is titrated further. We are using Haldol as needed for agitation. Vital signs reviewed. The patient requires continued psychiatric hospitalization. I was informed that the patient's guardian is pursuing [facility] home options once he is stabilized.
[2018-04-09] MEDS: ACETAMINOPHEN TAB 325 MG TAB PO PRN (17:12)
[2018-04-09] MEDS: cloZAPine 100 MG TAB PO SCH (20:38)
[2018-04-10] MEDS: OLANZapine 10 MG TAB PO SCH ×2 (06:45→17:46)
[2018-04-10] MEDS: clonazePAM 1 MG TAB PO SCH ×3 (06:45→19:46)
[2018-04-10] MEDS: MULTIVITAMINS, THERA 1 EACH TAB PO SCH (06:45)
[2018-04-10] MEDS: HALOPERIDOL 5 MG TAB PO PRN (08:44)
[2018-04-10] MEDS: cloZAPine 25 MG TAB PO SCH (08:44)
[2018-04-10] MEDS: BENZTROPINE MESYLATE 1 MG TAB PO PRN ×2 (08:44→18:59)
[2018-04-10] MEDS: NICOTINE 21MG/24HR PATCH TRANSDERM SCH (08:45)
[2018-04-10] MEDS: LORazepam 1 MG TAB PO PRN ×2 (10:09→17:46)
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
[2018-04-10] MEDS: cloZAPine 100 MG TAB PO SCH (19:46)
[2018-04-11] MEDS: OLANZapine 10 MG TAB PO SCH ×2 (07:13→17:15)
[2018-04-11] MEDS: MULTIVITAMINS, THERA 1 EACH TAB PO SCH (07:13)
[2018-04-11] MEDS: clonazePAM 1 MG TAB PO SCH ×3 (07:14→20:25)
[2018-04-11] MEDS: cloZAPine 25 MG TAB PO SCH (08:58)
[2018-04-11] MEDS: NICOTINE 21MG/24HR PATCH TRANSDERM SCH (08:59)
[2018-04-11] MEDS ORDERED: cloZAPine 25 MG TAB PO ONE (10:04)
--- NOTE | 2018-04-11 10:10 | P.PN ---
Progress Note - Text Interval history: The patient is found in the hallway he approaches me to speak we met briefly in the library. The patient asks questions about his medications but does not wait for response and then asks other questions. He indicates he doesn't want to be in a place like this. Attempts were made to reassure him that we are trying to stabilize him so that he can be transitioned to another placement. He gets up during the session and slams the door to the library he briefly returns to the table and then indicates he is leaving. Mental status exam: The patient is a male appearing older than his stated age. He has long unkempt hair and wears a goatee. Eye contact is intermittent. He maintains an irritable affect throughout the session. He is observed ambulating in the hallway throughout the morning. He sat briefly during our session and then began ambulating in the room. Again he slammed the door to the library. He was redirected back to his see which he complied with briefly and then left the room. The patient continues to demonstrate disorganized delusions. He continues to demonstrate behavior that is aggressive in nature when he feels frustrated. He demonstrated no aggressiveness towards me. He has poor insight into his symptoms. His behavior remains unpredictable. No further questioning could be completed due to his lack of participation. Plan: The patient will continue on his current medications I will titrate the Clozaril to 100 mg twice daily starting today. Vital signs reviewed. Lab work has been appropriate for us to continue dispensing Clozaril. The patient continues to demonstrate agitated behavior and psychosis. His behavior is unpredictable and he requires continued one-to-one supervision for his safety and that of others.
[2018-04-11] MEDS: HALOPERIDOL 5 MG TAB PO PRN (13:35)
[2018-04-11] MEDS: cloZAPine 100 MG TAB PO SCH (20:25)
[2018-04-12] MEDS: BENZTROPINE MESYLATE 1 MG TAB PO PRN ×2 (04:13→09:10)
[2018-04-12] MEDS: OLANZapine 10 MG TAB PO SCH ×4 (07:34→17:07)
[2018-04-12] MEDS: MULTIVITAMINS, THERA 1 EACH TAB PO SCH ×2 (07:34→07:49)
[2018-04-12] MEDS: clonazePAM 1 MG TAB PO SCH ×8 (07:34→22:36)
[2018-04-12] MEDS: cloZAPine 100 MG TAB PO SCH ×2 (09:11→21:37)
[2018-04-12] MEDS: NICOTINE 21MG/24HR PATCH TRANSDERM SCH (09:12)
--- NOTE | 2018-04-12 10:15 | P.PN ---
Progress Note - Text Interval history: The patient is found in the hallway he approaches me to speak. He follows me to the library. He is seated briefly before terminating the session. He indicates his mood is all right. She has some difficulty expressing thoughts and there is disorganization of his thoughts. He has demonstrated no aggressive behavior in the last 24 hours. He has been complying with his medication. He is eating. He is observed ambulating in the hallway throughout the morning. It appears he had some difficulty sleeping last night be recorded three-hour sleep. He did receive a oral Haldol dose yesterday afternoon. Mental status exam: The patient is a male appearing older than his stated age. He has long unkempt hair. Eye contact is intermittent. He seated briefly with me in the library then gets up and leaves the room. His statements are disorganized. He demonstrated no verbal or physical aggressiveness during our interaction. He continues to display symptoms of psychosis. Insight and judgment are poor. He is demonstrating no repetitive involuntary movements. He did not tolerate questions regarding hallucinations suicidal or homicidal ideation. Plan: The patient will continue on his current prescribed psychotropics. We continue to titrate the Clozaril. He has not been demonstrating any aggressive behavior towards others. Thoughts remain disorganized I believe he has a delusional thought content. He requires continued psychiatric hospitalization. Once he is further stabilized we will pursue placement. Social work is in contact with the patient's guardian and a packet has been faxed for potential placement once the patient is sufficiently stabilized. Vital signs reviewed.
[2018-04-12 11:47] LABS: Basophils % (A) 1 %; Eosinophils # (A) 0.1 k/uL (0-0.7); Eosinophils % (A) 3 %; HCT 35.6 % (39.0-53.0); HGB 11.1 gm/dL (13.0-17.5); Hypochromasia Marked; Lymphocytes # (A) 1.1 k/uL (1.0-4.8); Lymphocytes % (A) 25 %; MCH 28.1 pg (25.0-35.0); MCHC 31.3 g/dL (31.0-37.0); Mean Platelet Volume 8.6; Monocytes # (A) 0.4 k/uL (0-1.0); Monocytes % (A) 8 %; Neutrophils # (A) 2.8 k/uL (1.3-7.7); Neutrophils % (A) 60 %; Platelet Count 218 k/uL (150-450); RBC 3.96 m/uL (4.30-5.90); RDW 15.7 % (11.5-15.5); WBC 4.6 k/uL (3.8-10.6)
[2018-04-13] MEDS: NICOTINE 21MG/24HR PATCH TRANSDERM SCH (07:38)
[2018-04-13] MEDS: MULTIVITAMINS, THERA 1 EACH TAB PO SCH (07:38)
[2018-04-13] MEDS: cloZAPine 100 MG TAB PO SCH ×2 (07:38→19:43)
[2018-04-13] MEDS: OLANZapine 10 MG TAB PO SCH (07:38)
[2018-04-13] MEDS: clonazePAM 1 MG TAB PO SCH ×3 (07:38→19:45)
--- NOTE | 2018-04-13 10:25 | P.PN ---
Progress Note - Text Interval history: The patient is found in the hallway he follows me to the library to speak briefly. He indicates that he is feeling better. He reports no agitation. I will discuss his behavior over the last 24 hours with staff during treatment team meeting. The patient remains compliant with the antipsychotic medication. He reports he slept all night staff reported he slept 5 hours. He indicates appetite stable. Mental status exam: The patient is alert he is ambulating slowly in the hallway. He follows direction to meet with me in the library. He tolerates the interview for 3-4 minutes before getting up and leaving. He demonstrated no verbal or physical aggressiveness. He continues to have some disorganization of thoughts and likely delusional thought content. He reports no thoughts of harming himself or others. He does get quickly bothered by questioning. Affect is flat. He has a disheveled appearance. He is dressed in her pants and wearing a women's T-shirt. Eye contact is intermittent. Speech is spontaneous but again thoughts are not well organized. Insight and judgment impaired but he seems to be doing better in regulating his behavior. He is oriented to being in a hospital he names the day the week as Monday. He does not tolerate any further orientation questions. Plan: The patient's will continue on his current medications however I will reduce the Zyprexa to 15 mg twice daily as a plan to taper that medication off. I will titrate the Clozaril to 100 mg in the morning 250 mg in the evening. His recent CBC with differential supports are continued use of Clozaril. We will monitor him for safety and encourage appropriate participation in the milieu. We continue to work on placement options for when he is stabilized. Vital signs reviewed. It appears he is adequately managing his behavior without one-to-one supervision so we will continue him on routine precautions with 15 minute safety checks.
[2018-04-13] MEDS: HALOPERIDOL 5 MG TAB PO PRN (14:21)
[2018-04-13] MEDS ORDERED: HALOPERIDOL ORAL SOLN 10 MG/5 ML CUP PO ONE (14:22)
[2018-04-13] MEDS ORDERED: diphenhydrAMINE 50 MG CAP PO STA (14:24)
[2018-04-13] MEDS: OLANZapine 5 MG TAB PO SCH (19:44)
[2018-04-13] MEDS: traZODone HCL 50 MG TAB PO PRN (19:45)
[2018-04-14] MEDS: clonazePAM 1 MG TAB PO SCH ×3 (05:25→20:38)
[2018-04-14] MEDS: MULTIVITAMINS, THERA 1 EACH TAB PO SCH (05:25)
[2018-04-14] MEDS: OLANZapine 5 MG TAB PO SCH ×3 (07:55→21:10)
[2018-04-14] MEDS: NICOTINE 21MG/24HR PATCH TRANSDERM SCH (07:55)
[2018-04-14] MEDS: cloZAPine 100 MG TAB PO SCH ×3 (07:55→20:38)
[2018-04-14] MEDS: HALOPERIDOL LACTATE 5 MG/ML 1 ML VIAL IM PRN (08:28)
[2018-04-14] MEDS: LORazepam 2 MG/ML INJ IM PRN (08:30)
--- NOTE | 2018-04-14 11:43 | P.PN ---
Subjective Progress Note Date: 04/14/18 Principal diagnosis: Schizophrenia Yesterday afternoon last time he had difficulty focusing concentrating whereby he was throwing his soda on the wall and was impulsive and not paying attention. He needed redirection and when necessary medications. Objective - Vital Signs Vital signs: Vital Signs Temp 97.4 F L 04/14/18 05:25 Pulse 94 04/14/18 05:25 Resp 16 04/14/18 05:25 BP 142/82 04/14/18 05:25 Pulse Ox 98 04/04/18 15:50 - Labs CBC & Chem 7: 04/12/18 11:21 04/04/18 19:20 Assessment and Plan Assessment: Interval history: The patient is found in the hallway . He indicates that he is feeling better. He reports no agitation. I will discuss his behavior over the last 24 hours with staff during treatment team meeting. The patient remains compliant with the antipsychotic medication. He reports he slept all night staff reported he slept 5 hours. He indicates appetite stable. Mental status exam: The patient is alert he is ambulating slowly in the hallway. He follows direction to meet with me in the library. He tolerates the interview for 3-4 minutes before getting up and leaving. He demonstrated no verbal or physical aggressiveness. He continues to have some disorganization of thoughts and likely delusional thought content. He reports no thoughts of harming himself or others. He does get quickly bothered by questioning. Affect is flat. He has a disheveled appearance. He is dressed in her pants and wearing a women's T-shirt. Eye contact is intermittent. Speech is spontaneous but again thoughts are not well organized. Insight and judgment impaired but he seems to be doing better in regulating his behavior. He is oriented to being in a hospital he names the day the week as Monday. He does not tolerate any further orientation questions. Plan: The patient's will continue on his current medications however I will reduce the Zyprexa to 15 mg twice daily as a plan to taper that medication off. I will titrate the Clozaril to 100 mg in the morning 250 mg in the evening. His recent CBC with differential supports are continued use of Clozaril. We will monitor him for safety and encourage appropriate participation in the milieu. We continue to work on placement options for when he is stabilized. Vital signs reviewed. It appears he is adequately managing his behavior without one-to-one supervision so we will continue him on routine precautions with 15 minute safety checks. (1) Schizophrenia Current Visit: Yes Status: Acute Code(s): F20.9 - SCHIZOPHRENIA, UNSPECIFIED SNOMED Code(s): 98530933 Time with Patient: Less than 30
[2018-04-14] MEDS: diphenhydrAMINE 50 MG/ML 1 ML VIAL IM SCH ×3 (12:48→22:29)
[2018-04-14] MEDS: chlorproMAZINE 25 MG/ML 2 ML AMP IM SCH ×3 (12:49→22:26)
[2018-04-15] MEDS: MULTIVITAMINS, THERA 1 EACH TAB PO SCH (07:51)
[2018-04-15] MEDS: clonazePAM 1 MG TAB PO SCH ×3 (07:51→20:21)
[2018-04-15] MEDS: cloZAPine 100 MG TAB PO SCH ×2 (09:01→20:21)
[2018-04-15] MEDS: OLANZapine 5 MG TAB PO SCH ×2 (09:01→20:22)
[2018-04-15] MEDS: NICOTINE 21MG/24HR PATCH TRANSDERM SCH (09:11)
--- NOTE | 2018-04-15 11:33 | P.PN ---
Subjective Progress Note Date: 04/15/18 Principal diagnosis: Schizophrenia Today he is more calm and sedate and spends most of time in his room today he took his medications and went back to bed. Objective - Vital Signs Vital signs: Vital Signs Temp 97.6 F 04/15/18 06:37 Pulse 81 04/15/18 06:37 Resp 14 04/15/18 06:37 BP 125/67 04/15/18 06:37 Pulse Ox 98 04/04/18 15:50 - Labs CBC & Chem 7: 04/12/18 11:21 04/04/18 19:20 Assessment and Plan Assessment: Interval history: The patient is found in the hallway . He indicates that he is feeling better. He reports no agitation. I will discuss his behavior over the last 24 hours with staff during treatment team meeting. The patient remains compliant with the antipsychotic medication. He reports he slept all night staff reported he slept 5 hours. He indicates appetite stable. Mental status exam: The patient is alert he is ambulating slowly in the hallway. He follows direction to meet with me in the library. He tolerates the interview for 3-4 minutes before getting up and leaving. He demonstrated no verbal or physical aggressiveness. He continues to have some disorganization of thoughts and likely delusional thought content. He reports no thoughts of harming himself or others. He does get quickly bothered by questioning. Affect is flat. He has a disheveled appearance. He is dressed in her pants and wearing a women's T-shirt. Eye contact is intermittent. Speech is spontaneous but again thoughts are not well organized. Insight and judgment impaired but he seems to be doing better in regulating his behavior. He is oriented to being in a hospital he names the day the week as Monday. He does not tolerate any further orientation questions. Plan: The patient's will continue on his current medications however I will reduce the Zyprexa to 15 mg twice daily as a plan to taper that medication off. I will titrate the Clozaril to 100 mg in the morning 250 mg in the evening. His recent CBC with differential supports are continued use of Clozaril. We will monitor him for safety and encourage appropriate participation in the milieu. We continue to work on placement options for when he is stabilized. Vital signs reviewed. It appears he is adequately managing his behavior without one-to-one supervision so we will continue him on routine precautions with 15 minute safety checks. (1) Schizophrenia Current Visit: Yes Status: Acute Code(s): F20.9 - SCHIZOPHRENIA, UNSPECIFIED SNOMED Code(s): 06855697 Time with Patient: Less than 30
[2018-04-15] MEDS: LORazepam 1 MG TAB PO PRN (22:45)
[2018-04-15] MEDS ORDERED: HALOPERIDOL LACTATE 5 MG/ML 1 ML VIAL IM PRN (23:37)
[2018-04-15] MEDS ORDERED: HALOPERIDOL LACTATE 5 MG/ML 1 ML VIAL ONE (23:56)
[2018-04-16] MEDS: traZODone HCL 50 MG TAB PO PRN (03:18)
[2018-04-16] MEDS: MULTIVITAMINS, THERA 1 EACH TAB PO SCH (05:28)
[2018-04-16] MEDS: clonazePAM 1 MG TAB PO SCH ×3 (05:28→21:27)
[2018-04-16] MEDS: cloZAPine 100 MG TAB PO SCH ×2 (08:28→21:26)
[2018-04-16] MEDS: OLANZapine 5 MG TAB PO SCH (08:28)
[2018-04-16] MEDS: NICOTINE 21MG/24HR PATCH TRANSDERM SCH (08:32)
--- NOTE | 2018-04-16 10:15 | P.PN ---
Progress Note - Text Interval history: The patient is found in the hallway initially he chooses not to speak with me and then later approaches me stating he can talk. We were seated briefly in the library for a few minutes. He states he would like to be discharged to a halfway so he can have a beer and a cigarette. He indicates he would like for us not to deal with his legal guardian in placement decision making. I informed him that we needed to and that we were actively working on discharge planning. Staff report the patient's demonstrated mild behavior issues but no aggressiveness. He has no questions or concerns regarding his psychotropic medication at this time. Mental status exam: The patient is alert he has a disheveled appearance he is dressed in his own clothing. He is observed ambulating in the hallway throughout the morning. He participates in a session in the library for several minutes before getting up and leaving. He reports no thoughts of self- harm or harm to others. He does not respond to questions regarding hallucinations or specific delusions. He demonstrates no involuntary repetitive movements. He demonstrates no verbal or physical aggressiveness. He maintains a blunted affect throughout the session. Eye contact was intermittent. Insight and judgment impaired. Plan: The patient's will continue on his current psychotropic medication however I will lower the Zyprexa to 10 mg twice daily. We will plan to titrate the Clozaril further. We will await updates from social work regarding placement availability. Vital signs reviewed. We will continue monitoring him for safety.
[2018-04-16 15:31] VITALS: BMI 23.1
[2018-04-16] MEDS: OLANZapine 10 MG TAB PO SCH (21:26)
[2018-04-17] MEDS: MULTIVITAMINS, THERA 1 EACH TAB PO SCH (06:26)
[2018-04-17] MEDS: clonazePAM 1 MG TAB PO SCH ×4 (06:26→20:15)
[2018-04-17] MEDS: cloZAPine 100 MG TAB PO SCH ×2 (09:58→20:16)
[2018-04-17] MEDS: OLANZapine 10 MG TAB PO SCH (09:58)
[2018-04-17] MEDS: NICOTINE 21MG/24HR PATCH TRANSDERM SCH (09:59)
--- NOTE | 2018-04-17 11:07 | P.PN ---
Progress Note - Text Interval history: The patient is found in the hallway he follows me to the library to speak. He states he feels agitated about his colostomy bag. Staff reported he was cooperative with the change this morning. Staff continued to note that the patient's behavior has improved there has been no aggressive behavior. He is been more directable. He did sleep well throughout the night and into the morning. The patient was willing to cooperate with our session today for just a few moments. Mental status exam: The patient is alert he is dressed in his own clothing eye contact is intermittent. Indicates he is doing all right. He describes feelings of frustration in having the colostomy. He participated in the session for only a few minutes and then left. He demonstrated no agitated behavior his speech was nonpressured and quiet. Insight and judgment impaired. He reports no thoughts of harming himself or others. His thought process continues to appear disorganized. Plan: Overall the patient remains symptomatic but his behavior has improved significantly. I will continue the Clozaril and titrate the dose to 100 mg in the morning 200 mg at bedtime. The Zyprexa will be reduced to 5 mg twice daily. We will continue to monitor him for safety. We are still searching for appropriate placement for him. Social work is collaborating with the patient's guardian.
[2018-04-17] MEDS: LORazepam 1 MG TAB PO PRN ×2 (11:15→11:25)
[2018-04-17] MEDS: OLANZapine 5 MG TAB PO SCH (20:16)
[2018-04-18] MEDS: BENZTROPINE MESYLATE 1 MG TAB PO PRN (03:20)
[2018-04-18] MEDS: clonazePAM 1 MG TAB PO SCH ×3 (05:00→20:21)
[2018-04-18] MEDS: MULTIVITAMINS, THERA 1 EACH TAB PO SCH (05:00)
[2018-04-18] MEDS: OLANZapine 5 MG TAB PO SCH ×4 (08:10→20:20)
[2018-04-18] MEDS: cloZAPine 100 MG TAB PO SCH ×3 (08:10→20:21)
[2018-04-18] MEDS: NICOTINE 21MG/24HR PATCH TRANSDERM SCH ×2 (08:10→18:46)
[2018-04-18] MEDS ORDERED: cloZAPine 100 MG TAB PO ONE (09:30)
--- NOTE | 2018-04-18 09:38 | P.PN ---
Progress Note - Text Interval history: The patient is found in the hallway he follows me to the [facility]. He indicates that he wants to go to an [facility] home or senior care. Again he was advised that we are in contact with his guardian in trying to facilitate that placement. There've been no reports of any aggressive behavior. The patient has no questions regarding his medication. He again keeps our sessions quite brief and calmly leaves the room after just a few minutes. Mental status exam: The patient is alert he stands for the duration of our session. He is dressed in his own clothing he has a disheveled appearance. Eye contact is improved. He demonstrates an increased range of expression with some appropriate smiling. He continues to lack insight into his current symptoms but his behavior has been much improved. He demonstrates no repetitive involuntary movements. He demonstrates no verbal or physical aggressiveness. He was directable during our session. He continues to have a disorganized thought process and likely has a delusional thought content. Again he terminated the session prematurely but without aggressiveness. Plan: The patient will continue on his current psychotropic medication. We are exploring appropriate placement options for him in collaboration with his guardian. Vital signs reviewed. We will continue to monitor him for safety and encourage appropriate participation in the milieu. Reality orientation is provided when possible.
[2018-04-18 11:16] LABS: Basophils % (A) 0 %; Eosinophils # (A) 0.1 k/uL (0-0.7); Eosinophils % (A) 1 %; HCT 33.9 % (39.0-53.0); HGB 10.5 gm/dL (13.0-17.5); Hypochromasia Marked; Lymphocytes # (A) 1.4 k/uL (1.0-4.8); Lymphocytes % (A) 21 %; MCH 27.8 pg (25.0-35.0); MCHC 30.9 g/dL (31.0-37.0); Mean Platelet Volume 8.9; Monocytes # (A) 0.4 k/uL (0-1.0); Monocytes % (A) 5 %; Neutrophils # (A) 4.6 k/uL (1.3-7.7); Neutrophils % (A) 69 %; Platelet Count 222 k/uL (150-450); RBC 3.76 m/uL (4.30-5.90); RDW 15.6 % (11.5-15.5); WBC 6.7 k/uL (3.8-10.6)
[2018-04-18] MEDS: LORazepam 1 MG TAB PO PRN (12:43)
[2018-04-19] MEDS: NICOTINE 21MG/24HR PATCH TRANSDERM SCH (10:41)
[2018-04-19] MEDS: cloZAPine 100 MG TAB PO SCH ×2 (10:41→20:07)
[2018-04-19] MEDS: OLANZapine 5 MG TAB PO SCH ×2 (10:41→20:07)
[2018-04-19] MEDS: MULTIVITAMINS, THERA 1 EACH TAB PO SCH (10:41)
[2018-04-19] MEDS: clonazePAM 1 MG TAB PO SCH ×3 (10:41→20:07)
--- NOTE | 2018-04-19 14:43 | P.PN ---
Progress Note - Text Progress Note Date: 04/19/18 Interval history: Patient seen and interviewed in detail in my office. Found dishevel and anxious. Fixated about going out on a pass. Over all his mood has been improving but still remain paranoid delusional There've been no reports of any aggressive behavior. He is eating and sleeping better. Mental status exam: The patient is alert he stands for the duration of our session. He is dressed in his own clothing he has a disheveled appearance. Eye contact is improved. He demonstrates an increased range of expression with some appropriate smiling. He continues to lack insight into his current symptoms but his behavior has been much improved. He demonstrates no repetitive involuntary movements. He demonstrates no verbal or physical aggressiveness. He was directable during our session. He continues to have a disorganized thought process and likely has a delusional thought content. Again he terminated the session prematurely but without aggressiveness. Plan: The patient will continue on his current psychotropic medication. We are exploring appropriate placement options for him in collaboration with his guardian. Vital signs reviewed. We will continue to monitor him for safety and encourage appropriate participation in the milieu. Reality orientation is provided when possible.
[2018-04-19] MEDS: LORazepam 1 MG TAB PO PRN (15:01)
[2018-04-20] MEDS: cloZAPine 100 MG TAB PO SCH ×2 (08:14→21:04)
[2018-04-20] MEDS: MULTIVITAMINS, THERA 1 EACH TAB PO SCH (08:14)
[2018-04-20] MEDS: OLANZapine 5 MG TAB PO SCH ×2 (08:14→21:05)
[2018-04-20] MEDS: NICOTINE 21MG/24HR PATCH TRANSDERM SCH ×2 (08:14→08:25)
[2018-04-20] MEDS: clonazePAM 1 MG TAB PO SCH ×3 (08:14→21:04)
--- NOTE | 2018-04-20 18:13 | P.PN ---
Progress Note - Text Progress Note Date: 04/20/18 Interval history: Patient seen and interviewed in detail. Found him writing on papers. He reports racing thoughts and some confusion. Over all his mood has been improving but still remain paranoid delusional There've been no reports of any aggressive behavior. He is eating and sleeping better. Mental status exam: The patient is alert he stands for the duration of our session. He is dressed in his own clothing he has a disheveled appearance. Eye contact is improved. He demonstrates an increased range of expression with some appropriate smiling. He continues to lack insight into his current symptoms but his behavior has been much improved. He demonstrates no repetitive involuntary movements. He demonstrates no verbal or physical aggressiveness. He was directable during our session. He continues to have a disorganized thought process and likely has a delusional thought content. Again he terminated the session prematurely but without aggressiveness. Plan: The patient will continue on his current psychotropic medication. We are exploring appropriate placement options for him in collaboration with his guardian. Vital signs reviewed. We will continue to monitor him for safety and encourage appropriate participation in the milieu. Reality orientation is provided when possible.
[2018-04-20] MEDS: BENZTROPINE MESYLATE 1 MG TAB PO PRN (21:04)
[2018-04-20] MEDS: traZODone HCL 50 MG TAB PO PRN (21:04)
[2018-04-21] MEDS: OLANZapine 5 MG TAB PO SCH ×3 (00:44→21:23)
[2018-04-21] MEDS: clonazePAM 1 MG TAB PO SCH ×4 (00:44→21:24)
[2018-04-21] MEDS: cloZAPine 100 MG TAB PO SCH ×3 (00:44→21:23)
[2018-04-21] MEDS: ACETAMINOPHEN TAB 325 MG TAB PO PRN ×2 (00:48→17:39)
[2018-04-21] MEDS: LORazepam 1 MG TAB PO PRN (01:38)
[2018-04-21] MEDS: MULTIVITAMINS, THERA 1 EACH TAB PO SCH (09:52)
[2018-04-21] MEDS: NICOTINE 21MG/24HR PATCH TRANSDERM SCH (09:53)
--- NOTE | 2018-04-21 11:28 | P.PN ---
Progress Note - Text Progress Note Date: 04/21/18 Interval history: Patient seen and interviewed in detail. Found him writing on papers. He reports racing thoughts and some confusion. Over all his mood has been improving but still remain paranoid delusional There have been no reports of any aggressive behavior. He is eating and sleeping better. Mental status exam: The patient is alert he stands for the duration of our session. He is dressed in his own clothing he has a disheveled appearance. Eye contact is improved. He demonstrates an increased range of expression with some appropriate smiling. He continues to lack insight into his current symptoms but his behavior has been much improved. He demonstrates no repetitive involuntary movements. He demonstrates no verbal or physical aggressiveness. He was directable during our session. He continues to have a disorganized thought process and likely has a delusional thought content. Again he terminated the session prematurely but without aggressiveness. Plan: The patient will continue on his current psychotropic medication. We are exploring appropriate placement options for him in collaboration with his guardian. Vital signs reviewed. We will continue to monitor him for safety and encourage appropriate participation in the milieu. Reality orientation is provided when possible.
[2018-04-21] MEDS: traZODone HCL 50 MG TAB PO PRN (21:23)
[2018-04-22] MEDS: OLANZapine 5 MG TAB PO SCH ×2 (10:05→21:07)
[2018-04-22] MEDS: clonazePAM 1 MG TAB PO SCH ×3 (10:05→21:07)
[2018-04-22] MEDS: cloZAPine 100 MG TAB PO SCH ×2 (10:05→21:07)
[2018-04-22] MEDS: MULTIVITAMINS, THERA 1 EACH TAB PO SCH (10:05)
[2018-04-22] MEDS: NICOTINE 21MG/24HR PATCH TRANSDERM SCH (10:07)
--- NOTE | 2018-04-22 18:42 | P.PN ---
Progress Note - Text Progress Note Date: 04/22/18 Interval history: Patient seen and interviewed in detail. Found him writing on papers. He reports racing thoughts and some confusion. Over all his mood has been improving but still remain paranoid delusional There have been no reports of any aggressive behavior. He is eating and sleeping better. Mental status exam: The patient is alert he stands for the duration of our session. He is dressed in his own clothing he has a disheveled appearance. Eye contact is improved. He demonstrates an increased range of expression with some appropriate smiling. He continues to lack insight into his current symptoms but his behavior has been much improved. He demonstrates no repetitive involuntary movements. He demonstrates no verbal or physical aggressiveness. He was directable during our session. He continues to have a disorganized thought process and likely has a delusional thought content. Again he terminated the session prematurely but without aggressiveness. Plan: The patient will continue on his current psychotropic medication.
[2018-04-22] MEDS: traZODone HCL 50 MG TAB PO PRN (21:07)
[2018-04-23] MEDS: cloZAPine 100 MG TAB PO SCH ×3 (07:42→21:09)
[2018-04-23] MEDS: NICOTINE 21MG/24HR PATCH TRANSDERM SCH ×2 (07:43→09:00)
[2018-04-23] MEDS: OLANZapine 5 MG TAB PO SCH ×2 (07:43→08:43)
[2018-04-23] MEDS: MULTIVITAMINS, THERA 1 EACH TAB PO SCH ×2 (07:43→08:42)
[2018-04-23] MEDS: clonazePAM 1 MG TAB PO SCH ×4 (07:43→21:08)
[2018-04-23] MEDS: ACETAMINOPHEN TAB 325 MG TAB PO PRN (10:48)
--- NOTE | 2018-04-23 11:12 | P.PN ---
Progress Note - Text Interval history: The patient is found in the hallway he follows me to the library to speak briefly. He indicates he is doing okay but he wants to be outside. He states that he wants to be discharged to a care home in either [place] or [facility]. Staff report that the patient overall has been cooperative. He does demonstrate some frustration intolerance. He will struggle with his colostomy bag management. No reports of any aggressiveness towards others no reports of any damage to property. Lab results reviewed and they remain appropriate for continued dispensing of clozapine. transition social worker continues to work with his guardians regarding placement options. We will also look into getting surgical records to see when the colostomy is supposed to be reversed. Mental status exam: The patient is a thin male appearing older than his stated age. He has a disheveled appearance. Eye contact is improved today. His affect is cooperative and pleasant during our brief interaction. He demonstrates no verbal or physical aggressiveness. He is demonstrating no involuntary repetitive movements. He reports no thoughts of harming himself or others. Insight and judgment chronically impaired but much improved from when he was admitted. Again he does terminate the session by calmly getting up and leaving the room. Plan: The patient will continue on his current psychotropic medication however I will discontinue the Zyprexa. We will monitor him for safety and encourage appropriate participation in the milieu. We will consider titrating the clozapine further if needed. We are exploring appropriate placement options for him. We will also look into the timeline for which his colostomy is to be reversed.
--- NOTE | 2018-04-23 16:47 | P.GSCN ---
History of Present Illness Consult date: 04/23/18 Reason for Consult: History of decubitus ulcer History of present illness: This is a 48-year-old male who had a previous diverting colostomy performed for a decubitus ulcer. Patient's surgeon is at an outside institution. The patient is unable to give any significant medical history. The patient has some sutures located for his decubitus ulcer repair. Past Medical History Past Medical History: No Reported History Additional Past Medical History / Comment(s): Sacral pressure ulcer History of Any Multi-Drug Resistant Organisms: None Reported Additional Past Surgical History / Comment(s): Colostomy, flap for sacral pressure Past Psychological History: Bipolar, Schizophrenia Smoking Status: Unknown if ever smoked Past Alcohol Use History: None Reported, Daily Additional Past Alcohol Use History / Comment(s): 2 24 ounce beers daily Past Drug Use History: None Reported - Past Family History Father History Unknown: Yes Additional Family Medical History / Comment(s): patient does not know medical history Mother History Unknown: Yes Additional Family Medical History / Comment(s): patient does not know medical history Medications and Allergies Home Medications Medication Instructions Recorded Confirmed Type LORazepam [Ativan] 2 mg PO BID PRN 04/02/18 04/02/18 History Heil Carbonate 300 mg PO TID@0600,1400,199904/02/18 04/02/18 History Multivitamins, Thera [Multivitamin 1 tab PO DAILY@0600 04/02/18 04/02/18 History (formulary)] OLANZapine [ZyPREXA] 20 mg PO BID@0600,1800 04/02/18 04/02/18 History clonazePAM [KlonoPIN] 1 mg PO TID@0600,1400,199904/02/18 04/02/18 History traMADol HCL [Ultram] 50 mg PO BID PRN 04/02/18 04/02/18 History traZODone HCL 50 mg PO HS@1999 PRN 04/02/18 04/02/18 History Allergies Allergy/AdvReac Type Severity Reaction Status Date / Time divalproex sodium Allergy Unknown Verified 04/04/18 17:20 [From Depakote] ibuprofen Allergy Unknown Verified 04/04/18 17:20 Surgical - Exam Vital Signs Temp Pulse Resp BP Pulse Ox 98 F 85 18 139/90 95 04/01/18 17:19 04/01/18 17:19 04/01/18 17:19 04/01/18 17:19 04/01/18 17:19 - General well developed, no distress - Eyes PERRL - ENT normal pinna - Abdomen Colostomy left lower quadrant Abdomen: soft, non tender - Integumentary Multiple sutures in the patient's decubitus area. There is no evidence of infection. It appears that the ulcers heal. Results - Labs 04/18/18 10:08 04/04/18 19:20 Assessment and Plan Assessment: Healing decubitus ulcer. Patient have sutures removed by the nursing staff. He will follow-up with his primary surgeon.
[2018-04-24] MEDS: NICOTINE 21MG/24HR PATCH TRANSDERM SCH (09:29)
[2018-04-24] MEDS: MULTIVITAMINS, THERA 1 EACH TAB PO SCH (09:30)
[2018-04-24] MEDS: cloZAPine 100 MG TAB PO SCH ×2 (09:30→20:52)
[2018-04-24] MEDS: clonazePAM 1 MG TAB PO SCH ×3 (09:30→20:53)
--- NOTE | 2018-04-24 11:09 | P.DS ---
Providers Date of admission: 04/04/18 15:56 Expected date of discharge: 04/24/18 Attending physician: Isael Saldana Consults: 04/04/18 17:04 Consult Physician Routine Consulting Provider: Ap Garcia Consult Reason/Comments: H & P and medical care Do you want consulting provider notified?: Yes 04/04/18 20:46 Consult Physician Routine Consulting Provider: Hussein Villalobos Consult Reason/Comments: Management of stage IV decubitus ulcer to sacral area Do you want consulting provider notified?: Yes 04/23/18 13:09 Consult Physician Urgent Consulting Provider: Eric Farah Consult Reason/Comments: suture removal from decub, potential colostomy reversal Do you want consulting provider notified?: Already Contacted Primary care physician: Physician Nonstaff - Discharge Diagnosis(es) (1) Schizophrenia Current Visit: Yes Status: Acute Priority: High Hospital Course: Brief summary of admission note: This patient is a 48-year-old male who was admitted to the mental health unit through the emergency room for acute symptoms of psychosis and agitation. The patient was petitioned stating he was verbally aggressive throwing objects and food was wandering and was not directable. He admitted to experiencing auditory hallucinations. The patient upon initial evaluation was psychotic disorganized and uncooperative. The patient had been sent from an [facility] home in [place] where he had been for only a few days. For full detail please refer to the psychiatric evaluation dated 12/2017. Summary of hospital course: The patient was admitted to the psychiatric unit in voluntarily. A second clinical certificate was completed. The patient had been recently started on Zyprexa 20 mg twice daily and was on Klonopin 1 mg 3 times daily. The patient demonstrated agitated and aggressive behavior soon after being placed on the mental health unit. He has longed after staff and tried to be aggressive with others. He was placed on one-to-one supervision with security guards for several days. He received injectable Haldol and Ativan several times early into the admission to calm his behavior. Complicating his presentation the patient had recently undergone surgical closure of the wound on his posterior and also had required a colostomy. The patient because of his agitated behavior and psychosis would often take office colostomy bag and throw it. He was seen by internal medicine, infectious disease, and surgery during this admission. The decision was made to place him on clozapine and the dose was titrated during the course of his stay ultimately to 100 mg in the morning 200 mg in the evening. As the dosage was increased he began responding to the medication and his aggressive behavior has subsided. I have been able to taper him off of the Zyprexa and we continue the Klonopin 1 mg 3 times daily. The patient has been more cooperative more easily directed. He does still have some remnants of psychosis but is much improved. He was seen by surgery yesterday. His sutures were removed and he was given clearance for proceeding with the reversal of his colostomy. The colostomy was performed at [facility] in the [place] area and we are working on a transfer back to that facility so the original surgeon can perform the reversal. At this time the patient's acute psychiatric symptoms are much more controlled and he is appropriate for that procedure. We have been working closely with the patient' s guardian in looking for placement options and they are aware of the need for the colostomy reversal. Mental status exam: The patient is a thin male appearing older than his stated age. He has long unkempt hair as well as a cody. Eye contact is intermittent. Speech can be spontaneous. He indicates his mood is "alright". He reports no thoughts of harming himself or others. He reports he is experiencing no auditory or visual hallucinations. He reports feeling safe. He does likely have some residual symptoms of psychosis that may be part of his baseline. He does demonstrate some disorganization of thought still. He demonstrates no verbal or physical aggressiveness. He demonstrates no involuntary repetitive movements. Insight and judgment suspected to be chronically limited but much improved compared to time of admission. He maintains a constricted to blunted affect. Impressions 1. Schizophrenia versus schizoaffective disorder 2. History of colostomy and surgical closure of decubitus ulcer Plan: The patient will be transferred to [facility] for reversal of his colostomy. The patient's guardian has been informed and they agree with this plan. The patient's psychiatric symptoms are much improved compared to admission. He will continue on Clozaril 100 mg in the morning 200 mg at bedtime. He may continue using trazodone 50 mg at bedtime. He has had serial CBCs with differentials that have been within normal limits allowing us to continue dispensing Clozaril. He will require weekly CBC with differential. At this time the patient is not at imminent safety risk and is appropriate for transfer. Patient Condition at Discharge: Stable Plan - Discharge Summary New Discharge Prescriptions: New cloZAPine [Clozaril] 100 mg PO DAILY #30 tab cloZAPine [Clozaril] 200 mg PO HS #60 tab Nicotine 21Mg/24Hr Patch [Habitrol] 1 patch TRANSDERM DAILY #10 patch traZODone HCL [Desyrel] 50 mg PO HS@1999 PRN #30 tab PRN Reason: Insomnia Continue Multivitamins, Thera [Multivitamin (formulary)] 1 tab PO DAILY@0600 clonazePAM [KlonoPIN] 1 mg PO TID@0600,1399,1999 #45 tab Discontinued traMADol HCL [Ultram] 50 mg PO BID PRN PRN Reason: Pain LORazepam [Ativan] 2 mg PO BID PRN PRN Reason: Agitation traZODone HCL 50 mg PO HS@2000 PRN PRN Reason: Insomnia [place] Carbonate 300 mg PO TID@0600,1399,1999 OLANZapine [ZyPREXA] 20 mg PO BID@0600,1800 Discharge Medication List Multivitamins, Thera [Multivitamin (formulary)] 1 tab PO DAILY@0600 04/02/18 [ History] Nicotine 21Mg/24Hr Patch [Habitrol] 1 patch TRANSDERM DAILY #10 patch 04/24/18 [ Rx] cloZAPine [Clozaril] 100 mg PO DAILY #30 tab 04/24/18 [Rx] cloZAPine [Clozaril] 200 mg PO HS #60 tab 04/24/18 [Rx] clonazePAM [KlonoPIN] 1 mg PO TID@0600,1399,1999 #45 tab 04/24/18 [Rx] traZODone HCL [Desyrel] 50 mg PO HS@2000 PRN #30 tab 04/24/18 [Rx] Follow up Appointment(s)/Referral(s): Nonstaff,Physician [Primary Care Provider] - 1-2 days
[2018-04-25] MEDS: MULTIVITAMINS, THERA 1 EACH TAB PO SCH ×2 (09:29→11:52)
[2018-04-25] MEDS: clonazePAM 1 MG TAB PO SCH ×4 (09:29→21:15)
[2018-04-25] MEDS: NICOTINE 21MG/24HR PATCH TRANSDERM SCH (09:30)
[2018-04-25] MEDS: cloZAPine 100 MG TAB PO SCH ×3 (09:30→21:16)
--- NOTE | 2018-04-25 10:15 | P.PN ---
Progress Note - Text Interval history: The patient is found in his room lying in bed he does not wish to follow me to an interview room at this time but is willing to speak with me briefly. He indicates his mood is okay. He states that he is not that active in the morning but gets up and ambulates later in the day. Staff report no behavioral disturbances. He has demonstrated no aggressive behavior towards others. Sleep has been stable. We have plan to transfer him yesterday but due to logistical issues that was not accomplished. We are looking at our options at this point in terms of having him get his reversal surgery. Mental status exam: The patient is alert he is lying in bed he is covered up to his neck in a blanket. Eye contact is appropriate he has some spontaneous speech. Affect is constricted. He reports no thoughts of self-harm or harm to others. He is endorsing no hallucinations. He demonstrates no verbal or physical aggressiveness. He does continue to prefer that our interactions are brief. Insight and judgment chronically limited but much improved from time of admission. He is demonstrating no repetitive involuntary movements. Plan: The patient will continue on his current psychotropic medication. We will discuss his discharge planning again a treatment team. I'm informed that he may now be having his surgery here rather than being transferred. His guardian feels that he will be a better candidate for [facility] home placement once the colostomy is reversed. We will continue to monitor him for safety vital signs reviewed.
[2018-04-25 11:25] LABS: Basophils % (A) 1 %; Eosinophils # (A) 0.1 k/uL (0-0.7); Eosinophils % (A) 2 %; HCT 34.1 % (39.0-53.0); HGB 10.7 gm/dL (13.0-17.5); Hypochromasia Marked; Lymphocytes # (A) 1.5 k/uL (1.0-4.8); Lymphocytes % (A) 33 %; MCH 28.1 pg (25.0-35.0); MCHC 31.5 g/dL (31.0-37.0); MCV 89.1 fL (80.0-100.0); Mean Platelet Volume 9.3; Monocytes # (A) 0.3 k/uL (0-1.0); Monocytes % (A) 6 %; Neutrophils # (A) 2.4 k/uL (1.3-7.7); Neutrophils % (A) 54 %; Platelet Count 195 k/uL (150-450); RBC 3.82 m/uL (4.30-5.90); RDW 15.8 % (11.5-15.5); WBC 4.4 k/uL (3.8-10.6)
[2018-04-26] MEDS: MULTIVITAMINS, THERA 1 EACH TAB PO SCH (09:26)
[2018-04-26] MEDS: clonazePAM 1 MG TAB PO SCH ×3 (09:26→20:29)
[2018-04-26] MEDS: cloZAPine 100 MG TAB PO SCH ×2 (09:26→20:28)
[2018-04-26] MEDS: NICOTINE 21MG/24HR PATCH TRANSDERM SCH ×2 (09:26→10:03)
--- NOTE | 2018-04-26 10:06 | P.PN ---
Progress Note - Text Interval history: The patient is found in his room lying in bed awake. He did not prefer to speak to me in an interview room. He indicates his mood is "okay ". He reports he slept last night staff reported he slept 6 hours. He states appetite is stable. He has no questions regarding his psychotropic medication. He asks if he will be placed in a [facility] home in [facility] and he was informed that social work and his guardian are working on a placement in that area. He is agreeable to having the colostomy reversed. Mental status exam: The patient is an alert male he is lying in bed his eyes are open he has intermittent eye contact. He initiates no spontaneous speech but does provide brief answers to questions asked. He endorses no suicidal or homicidal thoughts she is reporting no auditory or visual hallucinations. Indicates he feels safe here in the hospital. His speech is limited today he does not have any spontaneous evidence of thought disorganization. He demonstrated no verbal or physical aggressiveness he demonstrates no involuntary repetitive movements. Overall insight is presumed to be chronically impaired but again it is improved significantly from time of admission. Affect remains constricted during our interaction. Plan: The patient will continue on the clozapine as prescribed. We continue to monitor him for safety. I will confer with staff regarding his behavior over the last 24 hours. There is been no aggressive behavior. We continue to work on arrangements for reversal of his colostomy and subsequent placement in an [facility] home in [facility].
[2018-04-27] MEDS: NICOTINE 21MG/24HR PATCH TRANSDERM SCH (08:33)
[2018-04-27] MEDS: cloZAPine 100 MG TAB PO SCH ×2 (08:33→20:30)
[2018-04-27] MEDS: MULTIVITAMINS, THERA 1 EACH TAB PO SCH (08:34)
[2018-04-27] MEDS: clonazePAM 1 MG TAB PO SCH ×3 (08:34→20:30)
--- NOTE | 2018-04-27 09:57 | P.PN ---
Progress Note - Text Interval history: The patient is found in his room lying in bed. He is awake. He indicates his mood is okay. He asks when his surgery will take place and he was informed that that has not yet been decided. As of yesterday her plan was to pursue reversal of colostomy. This morning there is a group sales representative here from [facility] to evaluate him for intermediate placement. There've been no reports of any agitated behavior. The patient has no concerns regarding his medication. Mental status exam: The patient's alert he is lying in bed eye contact is appropriate. With this brief interaction he is cooperative he demonstrates no aggressive speech or behavior. He asked questions related to his upcoming surgery. He demonstrates no involuntary repetitive movements. He maintains a constricted affect. He reports no thoughts of harming himself or others. He continues to endorse no hallucinations. He indicates he feels safe here in the hospital. Insight and judgment are slowly improving. Plan: The patient's will continue on his current psychotropic medication. We are awaiting input from surgery as well as his guardian regarding placement afterwards. We will continue to monitor him for safety and encourage appropriate participation in the milieu and we will offer her reality orientation when possible. Vital signs reviewed.
[2018-04-28] MEDS: NICOTINE 21MG/24HR PATCH TRANSDERM SCH (10:39)
[2018-04-28] MEDS: cloZAPine 100 MG TAB PO SCH ×2 (10:39→20:12)
[2018-04-28] MEDS: BENZTROPINE MESYLATE 1 MG TAB PO PRN (10:39)
[2018-04-28] MEDS: clonazePAM 1 MG TAB PO SCH ×3 (10:39→20:12)
[2018-04-28] MEDS: MULTIVITAMINS, THERA 1 EACH TAB PO SCH (10:40)
[2018-04-28 11:28] VITALS: RESP 20
--- NOTE | 2018-04-28 19:28 | P.PN ---
Progress Note - Text Progress Note Date: 04/28/18 IDENTIFICATION DATA: 48-year-old male who was petioned to the mental health unit due to acute symptoms of psychosis and agitation. Verbal aggression towards others, throwing objects and food pacing the floor, wandering off and not redirectable. Admits to hearing voices, cursing at staff, verbally aggressive when being redirected, touching others threatening actions, pounding on doors. INTERVAL HISTORY: Reports feeling tired and weak. He reports feeling good mentally. He states clozapine makes him tired and makes him wet bed. He wants to be taken off of clozaril. He was encouraged to continue to take it as he will overcome those side effects with continued use. He claims he was able to overcome side effects after being on it for six months in the past. He reports good sleep and appetite. He claims he doesnt go to groups due to not feeling comfortable in groups. He reports feeling paranoid about others ganging up on him. MENTAL STATUS EXAMINATION: Appeared stated age. dressed casually.. Fair grooming and hygiene. No abnormal movements noted. mood is reported as OK, affect appropriate. speech and thought process were goal directed.. denies current hallucinatios. Reports paranoia. is alert and oriented x 4. denies current suicidal or homicidal ideations. insight and judgement are improving. ASSESSMENT AND PLAN: Will increase the dose of cogentin per his request. Continue current treatment. Monitor for symptoms. He is currently waiting for his colostomy reversal and AFC placement after.
[2018-04-28 20:15] VITALS: BP 154/80; PULSE 115; TEMP 98.3
[2018-04-28] MEDS: traZODone HCL 50 MG TAB PO PRN (23:42)
[2018-04-29] MEDS: BENZTROPINE MESYLATE 1 MG TAB PO PRN (07:51)
[2018-04-29] MEDS: NICOTINE 21MG/24HR PATCH TRANSDERM SCH (07:51)
[2018-04-29] MEDS: cloZAPine 100 MG TAB PO SCH ×2 (07:52→20:37)
[2018-04-29] MEDS: clonazePAM 1 MG TAB PO SCH ×3 (07:52→20:37)
[2018-04-29] MEDS: MULTIVITAMINS, THERA 1 EACH TAB PO SCH (07:52)
--- NOTE | 2018-04-29 17:48 | P.PN ---
Progress Note - Text Progress Note Date: 04/29/18 IDENTIFICATION DATA: 48-year-old male who was petioned to the mental health unit due to acute symptoms of psychosis and agitation. Verbal aggression towards others, throwing objects and food pacing the floor, wandering off and not redirectable. Admits to hearing voices, cursing at staff, verbally aggressive when being redirected, touching others threatening actions, pounding on doors. INTERVAL HISTORY: He was seen walking in the hallway. He claims to have slept for couple of hours. He stays inside his room most of the time. Reports feeling tired and weak. He reports feeling good mentally. He reports good appetite. No major behavioral problems reported. MENTAL STATUS EXAMINATION: Appeared stated age. dressed casually.. Marginal grooming and hygiene. No abnormal movements noted. mood is reported as OK, affect appropriate. speech and thought process were goal directed.. denies current hallucinatios. Reports paranoia. is alert and oriented x 4. denies current suicidal or homicidal ideations. insight and judgement are improving. ASSESSMENT AND PLAN: Continue current treatment. Monitor for symptoms. He is currently waiting for his colostomy reversal and AFC placement after.
[2018-04-30] MEDS: MULTIVITAMINS, THERA 1 EACH TAB PO SCH ×2 (09:22→12:01)
[2018-04-30] MEDS: clonazePAM 1 MG TAB PO SCH ×3 (09:22→19:53)
[2018-04-30] MEDS: NICOTINE 21MG/24HR PATCH TRANSDERM SCH (09:23)
[2018-04-30] MEDS ORDERED: PEG 3350-NA SULF,BICARB,CL/KCL 4,000 ML BOTTLE PO STA (09:49)
--- NOTE | 2018-04-30 11:31 | P.PN ---
Progress Note - Text Interval history: The patient is found in his room he does not prefer to speak in an interview room. He indicates his mood is fine. He states he has not yet visualized a longterm as he knows one is being sought for him. He is aware that he is scheduled to have a reversal of his colostomy on Monday. He was reminded that he will undergo a colonoscopy tomorrow and will need to undergo the prep for that today. There have been no reported behavioral issues. He has not been attending groups. Mental status exam: The patient's is lying in bed he is alert. He responds to questions briefly. He has a disheveled appearance. He is in no acute distress. He reports no thoughts of harming himself or others. He is reporting no auditory or visual hallucinations. He is aware that he is on the mental health unit he is aware that he has surgery scheduled for Monday. He demonstrates no involuntary repetitive movements. He demonstrates no verbal or physical aggressiveness. He has been compliant with medication. Insight and judgment are improved compared to time of admission. Plan: The patient will continue on his current psychotropic medication. We will monitor him for sedation during the day we will consider reducing the Klonopin dose. We anticipate transferring him to the medical floor tomorrow. Vital signs reviewed.
[2018-04-30] MEDS: cloZAPine 100 MG TAB PO SCH ×2 (12:01→19:54)
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
[2018-05-01] MEDS: cloZAPine 100 MG TAB PO SCH (09:43)
[2018-05-01] MEDS: clonazePAM 1 MG TAB PO SCH (09:43)
[2018-05-01] MEDS: NICOTINE 21MG/24HR PATCH TRANSDERM SCH (10:07)
[2018-05-01] MEDS: MULTIVITAMINS, THERA 1 EACH TAB PO SCH (10:07)
[2018-05-01] MEDS ORDERED: IOPAMIDOL-300 CONTRAST 30 ML VIAL (ORAL USE) PO PRN (12:39)
--- NOTE | 2018-05-01 15:56 | CT ---
EXAMINATION TYPE: CT abdomen pelvis wo con DATE OF EXAM: 05/01/2018 COMPARISON: None HISTORY: History of colectomy, possible subtotal colectomy. CT DLP: 731 mGycm Examination of the solid and hollow viscera is limited given the lack of contrast. FINDINGS: LUNG BASES: No evidence for nodule. No evidence for infiltrate. LIVER/GB: There is evidence of cholelithiasis. No space-occupying hepatic lesion. PANCREAS: No pancreatic mass identified. No inflammatory process seen. SPLEEN: No evidence for splenomegaly. No intrasplenic lesions seen. ADRENALS: No adrenal nodules identified. No evidence for thickening. KIDNEYS: No evidence for renal mass. No nephrolithiasis. No hydronephrosis. BOWEL: There is near-total colectomy with the anterolateral sigmoid anastomosis noted left lower quad rant. There is a left-sided spigelian hernia noted containing a segment of small bowel without obstru ction. No recurrent mass is identified. Lymph nodes: No evidence for adenopathy greater than 1 cm. Abdominal aorta: Atheromatous changes seen. No evidence for aneurysm. Genital organs: No significant abnormality. Other: No significant abnormality. IMPRESSION: There is near-total colectomy with the anterolateral sigmoid anastomosis noted left lower quadrant. T here is a left-sided spigelian hernia noted containing a segment of small bowel without obstruction.
== END 2018-05-01 10:52 | disposition short-term general hospital (02) | DRG 885 ==
LOC: EC 16:53 → 3MHU 04-04 15:56
PROVIDERS: ADMIT Psychiatry & Neurology Psychiatry; ATTEND Psychiatry & Neurology Psychiatry
DX: F20.9 Schizophrenia, unspecified (principal); L89.154 Pressure ulcer of sacral region, stage 4; Z88.6 Allergy status to analgesic agent; Z88.8 Allergy status to other drugs, medicaments and biological substances; Z93.3 Colostomy status; Z71.6 Tobacco abuse counseling; F17.210 Nicotine dependence, cigarettes, uncomplicated; Z79.899 Other long term (current) drug therapy; Z90.49 Acquired absence of other specified parts of digestive tract; Z51.89 Encounter for other specified aftercare; Z98.890 Other specified postprocedural states; G47.00 Insomnia, unspecified; Z48.02 Encounter for removal of sutures; Z75.1 Person awaiting admission to adequate facility elsewhere
CPT/HCPCS: 36415; 74176; 80053; 80061; 80178; 80306; 82075; 82140; 83036; 83690; 85025; 85027; 96372; 99285

== ENCOUNTER 2018-05-01 09:46 | Inpatient (IN) | payer MEDICARE, OTHER ==
[2018-05-01] MEDS ORDERED: HYDROcodone/APAP 5-325MG 1 EACH TAB PO PRN (12:43)
[2018-05-01] MEDS ORDERED: NALOXONE 0.4 MG/ML 1 ML VIAL IV PRN (12:43)
[2018-05-01] MEDS ORDERED: ONDANSETRON 4 MG/2 ML VIAL IVP PRN (12:43)
[2018-05-01] MEDS ORDERED: ACETAMINOPHEN TAB 325 MG TAB PO PRN (12:43)
--- NOTE | 2018-05-01 13:14 | P.HPIM ---
History of Present Illness H&P Date: 05/01/18 Chief Complaint: colostomy pain 48-year-old male with a past medical history of schizophrenia, bipolar disorder, and sacral pressure ulcer who was admitted to the medical floor from the mental health unit for colostomy reversal. Patient has been on the mental health unit for 27 days. He was originally admitted for aggressive behavior. This has improved significantly with the initiation of clozaril and titration of his other medications. 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 The patient's wound is well healed and sutures have been able to eat removed. He underwent colonoscopy 05/01 and determined that he has an ileostomy and not a colostomy. Therefore plans will be for ileostomy reversal and takedown. Patient seen and examined at bedside. He states he feels tired and lethargic after his procedure. He denies any nausea, vomiting, lightheadedness or dizziness. He has not been having any chest pain, shortness of breath, dysuria , fever, chills. He has had increased anxiety regarding his ileostomy. He has been sleeping well at night. He feels he isn't doing well overall. He has no history of palpitations or syncope. He states he is able to walk easily without any exertional dyspnea or chest pain. Over all he is a poor historian. Review of Systems General: no fever/chills, no rigors, no weight loss/weight gain, no unusual fatigue Eyes: no noticeable visual changes, no loss of vision ENT: no rhinorrhea, no congestion, no sore throat Cardiovascular: no chest pain, no palpitations, no preyncope/syncope, no edema Pulmonary: no shortness of breath, no wheezing, no cough Abdominal: no abdominal pain, no constipation, no diarrhea, no vomiting, no nausea Genitourinary: no dysuria, no urinary frequency, no unusual discharge/odor Neuro: no unusual paresthesias, no unusual paresis/paralysis, no headache Dermatologic: wound on buttocks, no unusual lesions, no unusual changes in nails Hematologic: no hemoptysis, no hematuria, no melena/hematochezia Psychiatric: lethargic, no changes in sleep pattern Past Medical History Past Medical History: GERD/Reflux, Osteoarthritis (OA) Additional Past Medical History / Comment(s): Sacral pressure ulcer with necrotizing infection/rhabdomyolysis/sepsis with surgeries, occasional headaches , arthritis in bilateral hands. Per patient history of brain infection as a child. History of Any Multi-Drug Resistant Organisms: None Reported Additional Past Surgical History / Comment(s): Coccyx debridement/surgical flap and diverting ileostomy, past R wrist fracture with surgical repair. Past Anesthesia/Blood Transfusion Reactions: No Reported Reaction Smoking Status: Current every day smoker Past Alcohol Use History: Daily Past Drug Use History: None Reported Additional History: Was living at an adult foster care prior to admission - Past Family History Father History Unknown: Yes Additional Family Medical History / Comment(s): Father is , pt does not know father's medical history or cause of his . Mother History Unknown: Yes Additional Family Medical History / Comment(s): Pt states his mother is he thinks from stroke Medications and Allergies Home Medications Medication Instructions Recorded Confirmed Type Multivitamins, Thera [Multivitamin 1 tab PO DAILY@0600 04/02/18 05/01/18 History (formulary)] Nicotine 21Mg/24Hr Patch [Habitrol] 1 patch TRANSDERM DAILY #10 patch 04/24/18 05/01/18 Rx cloZAPine [Clozaril] 100 mg PO DAILY #30 tab 04/24/18 05/01/18 Rx cloZAPine [Clozaril] 200 mg PO HS #60 tab 04/24/18 05/01/18 Rx clonazePAM [KlonoPIN] 1 mg PO TID@0600,1400,2000 #45 tab 04/24/18 05/01/18 Rx traZODone HCL [Desyrel] 50 mg PO HS@2000 PRN #30 tab 04/24/18 05/01/18 Rx Allergies Allergy/AdvReac Type Severity Reaction Status Date / Time divalproex sodium Allergy Unknown Verified 05/01/18 12:37 [From Depakote] ibuprofen Allergy Unknown Verified 05/01/18 12:37 Physical Exam Osteopathic Statement: *. No significant issues noted on an osteopathic structural exam other than those noted in the History and Physical/Consult. Vitals: Intake and Output 04/30/18 05/01/18 05/01/18 22:59 06:59 14:59 Other: Weight 80.739 kg General: ill appearing, no distress, appears at stated age, normal weight, disheveled Derm: sacral pressure ulcer on sacrum with good granulation tissue, no slough, no drainage, not malodorous no unusual ecchymoses, warm, dry Head: atraumatic, normocephalic, symmetric Eyes: EOMI, no lid lag, anicteric sclera, pupils equal round reactive to light ENT: Nose and ears atraumatic, no thrush, no pharyngeal erythema Neck: No thyromegaly, no cervical lymphadenopathy, trachea midline, supple Mouth: no lip lesion, mucus membranes moist Cardiovascular: S1S2 reg, no murmur, positive posterior tibial pulse bilateral, no edema, capillary refill less than 2 seconds Lungs: CTA bilateral, no rhonchi, no rales , no accessory muscle use Abdominal: soft, nontender to palpation, no guarding, no appreciable organomegaly, normal bowel sounds Ext: no gross muscle atrophy, muscle strength 5 out of 5 in all 4 extremities grossly, no contractures, Neuro: CN II-XI grossly intact, light touch intact all 4 extremities, finger to nose within normal limits, Psych: Alert, oriented, appropriate affect Thrombosis Risk Factor Assmnt - DVT/VTE Prophylaxis DVT/VTE Prophylaxis: Mechanical Prophylaxis ordered - Choose All That Apply Any of the Below Risk Factors Present?: Yes Each Factor Represents 1 point: Age 41-60 years Other Risk Factors: No Other congenital or acquired thrombophilia - If yes, enter type in comment: No Thrombosis Risk Factor Assessment Total Risk Factor Score: 1 Thrombosis Risk Factor Assessment Level: Low Risk Assessment and Plan Assessment: Stage IV pressure wound, base on stage on initial admission 04/04/18 - present on admission, healing well - Continue wound care orders. Therahoney and Optifoam change once daily - Frequent turns - Assess for speciality bed - consult dietitian Ileostomy - plan for reversal in AM with Dr. Farah - obtain EKG - CT ABD/Pelvis GERD - PPI Tobacco abuse - cessation - nicotine replacement Schizophrenia - Continue with clozaril, klonopin, and deseryl The patient is admitted with an anticipated greater than 2 midnight stay for evaluation of ileostomy reversal. Surrogate decision-maker: Eddie Chacko CODE STATUS:Full DVT prophylaxis:SCDs Discussed with: Patient, nursing, surgery SEASONAL CLERK Anticipated discharge: 2-[address]: home A total of 50 minutes was spent on the care of this complex patient more than 50 % of the time was spent in counseling and care coordination.
[2018-05-01] MEDS: SODIUM CHLORIDE 0.9% 1,000 ML IV SCH ×2 (13:26→19:34)
[2018-05-01] MEDS: IOPAMIDOL-300 CONTRAST 30 ML VIAL (ORAL USE) PO PRN ×2 (13:26→15:13)
[2018-05-01] MEDS: clonazePAM 1 MG TAB PO SCH ×2 (13:31→19:34)
[2018-05-01 14:11] VITALS: BMI 23.5
[2018-05-01] MEDS: NICOTINE 14MG/24HR PATCH TRANSDERM SCH (15:16)
[2018-05-01] MEDS: cloZAPine 100 MG TAB PO SCH (19:34)
[2018-05-01] MEDS ORDERED: traZODone HCL 50 MG TAB PO PRN (20:00)
[2018-05-02 05:35] LABS: Basophils % (A) 1 %; Eosinophils # (A) 0.1 k/uL (0-0.7); Eosinophils % (A) 3 %; HCT 34.5 % (39.0-53.0); HGB 10.8 gm/dL (13.0-17.5); Hypochromasia Marked; Lymphocytes # (A) 1.2 k/uL (1.0-4.8); Lymphocytes % (A) 29 %; MCH 27.7 pg (25.0-35.0); MCHC 31.3 g/dL (31.0-37.0); MCV 88.2 fL (80.0-100.0); Mean Platelet Volume 9.3; Monocytes # (A) 0.3 k/uL (0-1.0); Monocytes % (A) 6 %; Neutrophils # (A) 2.5 k/uL (1.3-7.7); Neutrophils % (A) 58 %; Platelet Count 184 k/uL (150-450); RBC 3.91 m/uL (4.30-5.90); RDW 15.7 % (11.5-15.5); WBC 4.3 k/uL (3.8-10.6)
[2018-05-02 05:45] LABS: INR 1.2 (<1.2); Prothrombin Time 11.4 sec (9.0-12.0)
[2018-05-02 05:51] LABS: Anion Gap 5 mmol/L; Blood Urea Nitrogen 10 mg/dL (9-20); Calcium 9.1 mg/dL (8.4-10.2); Carbon Dioxide 28 mmol/L (22-30); Chloride 108 mmol/L (98-107); Glucose 95 mg/dL (74-99); Magnesium 1.9 mg/dL (1.6-2.3); Phosphorus 4.3 mg/dL (2.5-4.5); Potassium 4.3 mmol/L (3.5-5.1); Sodium 141 mmol/L (137-145)
[2018-05-02] MEDS: clonazePAM 1 MG TAB PO SCH ×3 (05:55→20:33)
[2018-05-02] MEDS: MULTIVITAMINS, THERA 1 EACH TAB PO SCH (05:55)
[2018-05-02] MEDS: PANTOPRAZOLE 40 MG TABLET PO SCH (07:30)
[2018-05-02] MEDS: NICOTINE 14MG/24HR PATCH TRANSDERM SCH (08:12)
--- NOTE | 2018-05-02 08:16 | P.PN ---
Progress Note - Text Progress Note Date: 05/02/18 The patient underwent colonoscopy yesterday. He appears to have a subtotal colectomy. His CAT scan confirmed the patient did have a subtotal colectomy with a 15-20 cm rectal stump. Patient is also noted to have a nonobstructing Nancy and hernia. The patient would need to have a ilio rectal anastomosis. I'm not sure if he is functioning well enough to tolerate this. At this point we will observe him. His surgery will be canceled for today.
[2018-05-02] MEDS ORDERED: cloZAPine 100 MG TAB PO SCH (09:00)
--- NOTE | 2018-05-02 10:31 | P.PN ---
Subjective Progress Note Date: 05/02/18 48-year-old seen this morning at the bedside patient did have a colonoscopy done the day before. It appears the patient had a subtotal colectomy. Dr. Farah reviewed the CAT scan confirmed that the patient did have a subtotal colectomy with the rectal stump surgery that was plan today has been canceled secondary to patient not functioning at a level that would allow him to tolerate the recommendations of proceeding with a ileorectal anastomosis patient has limited functionality of providing care for self due to his mental illness patient has a history of schizophrenia, bipolar. Was transferred from the mental health unit on May 01 and underwent colonoscopy as mentioned yesterday ostomy right lower quadrant currently has a small amount of liquid stool Objective - Vital Signs Vital signs: Vital Signs Temp 97.8 F 05/01/18 21:00 Pulse 73 05/02/18 05:00 Resp 17 05/02/18 05:00 BP 133/93 05/02/18 05:00 Pulse Ox 100 05/02/18 05:00 Intake & Output 05/01/18 05/02/18 05/02/18 18:59 06:59 18:59 Intake Total 70 1200 Output Total 280 Balance 70 920 Weight 80.739 kg 80.739 kg Intake: IV 70 280 Sodium Chloride 0.9% 1, 70 280 000 ml @ 70 mls/hr IV . [id number] JOSEPH Rx#:[id number] Intake, IV Titration 560 Amount Sodium Chloride 0.9% 1, 560 000 ml @ 70 mls/hr IV . [id number] JOSEPH Rx#:[id number] Oral 360 Output: Stool 280 Other: # Voids 1 - Exam Exam Abdomen well-healed surgical scar noted ostomy right lower quadrant small amount of liquid brown stool noted no nausea no vomiting urinating no difficulty - Labs CBC & Chem 7: 05/02/18 05:16 05/02/18 05:16 Labs: Abnormal Lab Results - Last 24 Hours (Table) 05/02/18 05/02/18 05/02/18 Range/Units 05:16 05:16 05:16 RBC 3.91 L (4.30-5.90) m/uL Hgb 10.8 L (13.0-17.5) gm/dL Hct 34.5 L (39.0-53.0) % RDW 15.7 H (11.5-15.5) % INR 1.2 H (<1.2) Chloride 108 H (98-107) mmol/L Assessment and Plan Assessment: Impression CAT scan abdomen and pelvis done on May 01 report indicate subtotal colectomy with 15-20 cm rectal stump Status post colonoscopy May 01 evidence of an ileostomy History of a bipolar schizophrenia disorder Present on admission stage IV pressure ulcer Active nicotine dependency Plan No plan for surgical intervention or reversal of the ileostomy at this time patient is felt to be a poor candidate due to decrease functionality with poor ability to tolerate an ileorectal anastomosis No plans for surgical intervention Patient can be discharged when appropriate defer to the timing of the discharge to the attending Discharge plan per attending The above impression and plan of care have been discussed and directed by signing physician. Maira L Li nurse practitioner acting as scribe for signing physician.
--- NOTE | 2018-05-02 11:25 | P.PN ---
Subjective Progress Note Date: 05/02/18 (Delayed charting seen at 1000) Principal diagnosis: ileostomy Patient is a 48-year-old male with a past medical history of schizophrenia, bipolar disorder, and sacral pressure ulcer who was admitted to the medical floor from the mental health unit for colostomy reversal. Patient has been on the mental health unit for 27 days. He was originally admitted for aggressive behavior. This has improved significantly with the initiation of clozaril and titration of his other medications. He was discharged from the mental health unit as he is easily redirectable nad demonstrating no aggressive behaviors. 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 The patient's wound is well healed and sutures have been able to eat removed. He underwent colonoscopy 05/01 and determined that he has an ileostomy and not a colostomy. Follow-up CT abdomen and pelvis demonstrated a near total colectomy with anetrolateral sigmoid anastomosis in the left low quadrant. He was also found to have a spigelian hernia without obstruction. Dr. Farah determined that at this time patient is not a candidate for reversal. He would require a ileo rectal anastomosis and would almost certainly have dumping syndrome and his wound is not yet fully healed. At this point in time patient is appropriate for discharge and we are working on developing a safe discharge plan. Patient seen and examined at bedside. He denies any chest pain, shortness of breath, nausea, or vomiting. He is requesting to eat. The a long discussion about why he cannot have his colostomy reversed at this point in time. He understands. He also is aware that we are continuing to look for placement for him. He denies feelings of aggression, anxiety, or depression. He states he is doing fairly well right now. He does not also have an overwhelming desire to leave the hospital at this point in time. Objective - Vital Signs Vital signs: Vital Signs Temp 97.8 F 05/01/18 21:00 Pulse 73 05/02/18 05:00 Resp 17 05/02/18 05:00 BP 133/93 05/02/18 05:00 Pulse Ox 100 05/02/18 05:00 Intake & Output 05/01/18 05/02/18 05/02/18 18:59 06:59 18:59 Intake Total 70 1200 Output Total 280 Balance 70 920 Weight 80.739 kg 80.739 kg Intake: IV 70 280 Sodium Chloride 0.9% 1, 70 280 000 ml @ 70 mls/hr IV . [id number] JOSEPH Rx#:[id number] Intake, IV Titration 560 Amount Sodium Chloride 0.9% 1, 560 000 ml @ 70 mls/hr IV . [id number] JOSEPH Rx#:[id number] Oral 360 Output: Stool 280 Other: # Voids 1 - Exam General: non toxic, no distress, appears at stated age, disheveled Derm: warm, dry Head: atraumatic, normocephalic, symmetric Eyes: EOMI, no lid lag, anicteric sclera Mouth: no lip lesion, mucus membranes moist Cardiovascular: S1S2 reg, no murmur, positive posterior tibial pulse bilateral, Lungs: CTA bilateral, no rhonchi, no rales , no accessory muscle use Abdominal: soft, nontender to palpation, no guarding, no appreciable organomegaly, + ostomy bag inplace. Ext: no gross muscle atrophy, no edema, no contractures Neuro: CN II-XI grossly intact, no focal neuro deficits Psych: Alert, oriented, appropriate affect - Labs CBC & Chem 7: 05/02/18 05:16 05/02/18 05:16 Labs: Abnormal Lab Results - Last 24 Hours (Table) 05/02/18 05/02/18 05/02/18 Range/Units 05:16 05:16 05:16 RBC 3.91 L (4.30-5.90) m/uL Hgb 10.8 L (13.0-17.5) gm/dL Hct 34.5 L (39.0-53.0) % RDW 15.7 H (11.5-15.5) % INR 1.2 H (<1.2) Chloride 108 H (98-107) mmol/L Assessment and Plan Assessment: Stage IV pressure wound, base on stage on initial admission 04/04/18 - present on admission, healing well - Continue wound care orders. Therahoney and Optifoam change once daily - Frequent turns - dietitian recs Ileostomy - No plans for reveral at this time, out Patient follow-up with Dr. Alvarenga GERD - PPI Tobacco abuse - cessation - nicotine replacement Schizophrenia, stable - Continue with clozaril, klonopin, and deseryl CODE STATUS:Full DVT prophylaxis:SCDs Discussed with: Patient, nursing, surgery SPECIAL AGENT Anticipated discharge: DAVID Anticipated discharge place: to be determined. Patient has not been accepted to a facility at this time. Discussed extensively with social work A total of 25 minutes was spent on the care of this complex patient more than 50 % of the time was spent in counseling and care coordination.
[2018-05-02] MEDS: SODIUM CHLORIDE 0.9% 1,000 ML IV SCH (17:03)
[2018-05-02] MEDS: cloZAPine 100 MG TAB PO SCH (20:34)
[2018-05-03] MEDS: MULTIVITAMINS, THERA 1 EACH TAB PO SCH (06:10)
[2018-05-03] MEDS: clonazePAM 1 MG TAB PO SCH ×3 (06:10→20:04)
[2018-05-03] MEDS: cloZAPine 100 MG TAB PO SCH ×2 (09:07→20:04)
[2018-05-03] MEDS: NICOTINE 14MG/24HR PATCH TRANSDERM SCH (09:07)
[2018-05-03] MEDS: PANTOPRAZOLE 40 MG TABLET PO SCH (09:07)
[2018-05-03] MEDS: SODIUM CHLORIDE 0.9% 1,000 ML IV SCH ×2 (09:16→23:56)
--- NOTE | 2018-05-03 09:58 | P.PN ---
Subjective Progress Note Date: 05/03/18 Principal diagnosis: ileostomy Patient is a 48-year-old male with a past medical history of schizophrenia, bipolar disorder, and sacral pressure ulcer who was admitted to the medical floor from the mental health unit for colostomy reversal. Patient has been on the mental health unit for 27 days. He was originally admitted for aggressive behavior. This has improved significantly with the initiation of clozaril and titration of his other medications. He was discharged from the mental health unit as he is easily redirectable nad demonstrating no aggressive behaviors. 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 The patient's wound is well healed and sutures have been able to eat removed. He underwent colonoscopy 05/01 and determined that he has an ileostomy and not a colostomy. Follow-up CT abdomen and pelvis demonstrated a near total colectomy with anetrolateral sigmoid anastomosis in the left low quadrant. He was also found to have a spigelian hernia without obstruction. Dr. Farah determined that at this time patient is not a candidate for reversal. He would require a ileo rectal anastomosis and would almost certainly have dumping syndrome and his wound is not yet fully healed. At this point in time patient is appropriate for discharge and we are working on developing a safe discharge plan. Patient seen and examined at bedside. Healing well. Frustrated with staying in the hospital due to no placement. Wants to go to a residential as soon as possible. No nausea, vomiting, or increased ostomy output. Objective - Vital Signs Vital signs: Vital Signs Temp 98 F 05/03/18 08:19 Pulse 74 05/03/18 08:19 Resp 16 05/03/18 08:19 BP 132/84 05/03/18 08:19 Pulse Ox 98 05/03/18 08:19 Intake & Output 05/02/18 05/03/18 05/03/18 18:59 06:59 18:59 Intake Total 0 1200 Output Total 280 500 Balance -280 700 Weight 80.739 kg Intake: Intake, IV Titration 0 Amount Sodium Chloride 0.9% 1, 0 000 ml @ 70 mls/hr IV . [id number] JOSEPH Rx#:[id number] Oral 1200 Output: Stool 280 500 Other: # Voids 2 - Exam General: non toxic, no distress, appears at stated age, disheveled Derm: warm, dry Head: atraumatic, normocephalic, symmetric Eyes: EOMI, no lid lag, anicteric sclera Cardiovascular: S1S2 reg, no murmur, positive posterior tibial pulse bilateral, Lungs: CTA bilateral, no rhonchi, no rales , no accessory muscle use Psych: Alert, oriented, appropriate affect - Labs CBC & Chem 7: 05/02/18 05:16 05/02/18 05:16 Assessment and Plan Assessment: Stage IV pressure wound, base on stage on initial admission 04/04/18 - present on admission, healing well - Therahoney and Optifoam change once daily - Frequent turns - dietitian recs Ileostomy - No plans for reveral at this time, out Patient follow-up with Dr. Alvarenga GERD - PPI Tobacco abuse - cessation - nicotine replacement Schizophrenia, stable - Continue with clozaril, klonopin, and deseryl CODE STATUS:Full DVT prophylaxis:SCDs Discussed with: Patient, nursing, surgery ELECTRONIC SYSTEMS TECHNICIAN Anticipated discharge: DAVID Anticipated discharge place: to be determined. Patient has not been accepted to a facility at this time A total of 25 minutes was spent on the care of this complex patient more than 50 % of the time was spent in counseling and care coordination.
--- NOTE | 2018-05-03 10:47 | P.PN ---
Subjective Progress Note Date: 05/03/18 48-year-old male seen in follow-up visit. Discharge plan per the attending. Patient did undergo the colonoscopy on May 01. At that time it was determined the patient has an ileostomy not a colostomy. Follow-up CAT scan of the abdomen pelvis showed near-total colectomy with anterior lateral sigmoidostomy anastomosis in the left lower quadrant. 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 Patient from a surgical perspective is felt not to be candid date for reversal at this time. It would require an ileorectal as anastomosis. Concerns due to patient's mental illness patient would be able to tolerate procedure. It also would result in a dumping syndrome. Patient currently is resting comfortably in bed no nausea no vomiting. No increased ostomy output. There is a moderate amount liquid stool in the ostomy bag patient is aware that there will be no surgical procedure done Objective - Vital Signs Vital signs: Vital Signs Temp 98 F 05/03/18 08:19 Pulse 74 05/03/18 08:19 Resp 16 05/03/18 08:19 BP 132/84 05/03/18 08:19 Pulse Ox 98 05/03/18 08:19 Intake & Output 05/02/18 05/03/18 05/03/18 18:59 06:59 18:59 Intake Total 0 1200 Output Total 280 500 Balance -280 700 Weight 80.739 kg Intake: Intake, IV Titration 0 Amount Sodium Chloride 0.9% 1, 0 000 ml @ 70 mls/hr IV . [id number] [facility] Rx#:[id number] Oral 1200 Output: Stool 280 500 Other: # Voids 2 - Exam Physical exam Abdomen soft ostomy moderate amount liquid stool in the ostomy bag nontender bowel tones present no nausea no vomiting well-healed surgical scar to the abdominal wall urinating no difficulty - Labs CBC & Chem 7: 05/02/18 05:16 05/02/18 05:16 Assessment and Plan Assessment: Impression CAT scan abdomen and pelvis done on May 01 report indicate subtotal colectomy with 15-20 cm rectal stump Status post colonoscopy May 01 evidence of an ileostomy History of a bipolar schizophrenia disorder Present on admission stage IV pressure ulcer Active nicotine dependency Plan No plan for surgical intervention or reversal of the ileostomy at this time patient is felt to be a poor candidate due to decrease functionality with poor ability to tolerate an ileorectal anastomosis No plans for surgical intervention Patient can be discharged when appropriate defer to the timing of the discharge to the attending Discharge plan per attending We'll sign off and re-eval as needed The above impression and plan of care have been discussed and directed by signing physician. Maria L Li nurse practitioner acting as scribe for signing physician.
[2018-05-04] MEDS: MULTIVITAMINS, THERA 1 EACH TAB PO SCH (06:15)
[2018-05-04] MEDS: clonazePAM 1 MG TAB PO SCH ×3 (06:15→20:49)
[2018-05-04] MEDS: cloZAPine 100 MG TAB PO SCH ×2 (07:43→20:49)
[2018-05-04] MEDS: PANTOPRAZOLE 40 MG TABLET PO SCH (07:43)
[2018-05-04] MEDS: NICOTINE 14MG/24HR PATCH TRANSDERM SCH (07:43)
--- NOTE | 2018-05-04 11:19 | P.PN ---
Subjective Progress Note Date: 05/04/18 Principal diagnosis: ileostomy Patient is a 48-year-old male with a past medical history of schizophrenia, bipolar disorder, and sacral pressure ulcer who was admitted to the medical floor from the mental health unit for colostomy reversal. Patient has been on the mental health unit for 27 days. He was originally admitted for aggressive behavior. This has improved significantly with the initiation of clozaril and titration of his other medications. He was discharged from the mental health unit as he is easily redirectable nad demonstrating no aggressive behaviors. 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 The patient's wound is well healed and sutures have been able to eat removed. He underwent colonoscopy 05/01 and determined that he has an ileostomy and not a colostomy. Follow-up CT abdomen and pelvis demonstrated a near total colectomy with anetrolateral sigmoid anastomosis in the left low quadrant. He was also found to have a spigelian hernia without obstruction. Dr. Farah determined that at this time patient is not a candidate for reversal. He would require a ileo rectal anastomosis and would almost certainly have dumping syndrome and his wound is not yet fully healed. At this point in time patient is appropriate for discharge and we are working on developing a safe discharge plan. Patient seen and examined at bedside. Doing well. Really wants to be discharged hopefully to a fpc. Frustrated with having to be in the hospital but not feeling anxious or agitated. No nausea or vomiting. Had some issue with his ostomy becoming displaced today but was doing a good job helping the nurse clean up and reapply his ostomy. Very cooperative. Plan on taking a shower today. We again discussed that he may be a candidate for procedure at a later date and time once his wound is fully healed and he can follow-up with his surgeon from [facility]. Objective - Vital Signs Vital signs: Vital Signs Temp 97.5 F L 05/03/18 20:38 Pulse 80 05/04/18 06:00 Resp 16 05/04/18 06:00 BP 130/90 05/04/18 06:00 Pulse Ox 96 05/04/18 06:00 Intake & Output 05/03/18 05/04/18 05/04/18 18:59 06:59 18:59 Output Total 250 Balance -250 Weight 80.739 kg Output: Stool 250 Other: Voiding Method Toilet # Voids 3 1 1 # Bowel Movements 1 - Exam General: non toxic, no distress, appears at stated age, disheveled Derm: warm, dry Head: atraumatic, normocephalic, symmetric Eyes: EOMI, no lid lag, anicteric sclera Cardiovascular: S1S2 reg, no murmur, positive posterior tibial pulse bilateral, Lungs: CTA bilateral, no rhonchi, no rales , no accessory muscle use Psych: Alert, oriented, appropriate affect - Labs CBC & Chem 7: 05/02/18 05:16 05/02/18 05:16 Assessment and Plan Assessment: Stage IV pressure wound, base on stage on initial admission 04/04/18 - present on admission, healing well - Therahoney and Optifoam change once daily - Frequent turns - dietitian recs Ileostomy - No plans for reveral at this time, out Patient follow-up with Dr. Alvarenga - Ostomy care GERD - PPI Tobacco abuse - cessation - nicotine replacement Schizophrenia, stable - Continue with clozaril, klonopin, and deseryl CODE STATUS:Full DVT prophylaxis:SCDs Discussed with: Patient, nursing, Anticipated discharge: DAVID Anticipated discharge place: to be determined. Patient has not been accepted to a facility at this time A total of 25 minutes was spent on the care of this complex patient more than 50 % of the time was spent in counseling and care coordination.
[2018-05-04] MEDS: SODIUM CHLORIDE 0.9% 1,000 ML IV SCH (11:32)
[2018-05-04] MEDS: MELATONIN 3 MG TABLET PO PRN (21:11)
[2018-05-05] MEDS: SODIUM CHLORIDE 0.9% 1,000 ML IV SCH ×2 (02:36→19:30)
[2018-05-05] MEDS: clonazePAM 1 MG TAB PO SCH ×3 (06:21→20:02)
[2018-05-05] MEDS: MULTIVITAMINS, THERA 1 EACH TAB PO SCH (06:21)
[2018-05-05] MEDS: NICOTINE 14MG/24HR PATCH TRANSDERM SCH (12:38)
[2018-05-05] MEDS: PANTOPRAZOLE 40 MG TABLET PO SCH (12:38)
[2018-05-05] MEDS: cloZAPine 100 MG TAB PO SCH ×2 (12:38→20:02)
--- NOTE | 2018-05-05 14:35 | P.PN ---
Subjective Progress Note Date: 05/05/18 Principal diagnosis: Patient is a 48-year-old male with a past medical history of schizophrenia, bipolar disorder, and sacral pressure ulcer who was admitted to the medical floor from the mental health unit for colostomy reversal. Patient has been on the mental health unit for 27 days. He was originally admitted for aggressive behavior. This has improved significantly with the initiation of clozaril and titration of his other medications. He was discharged from the mental health unit as he is easily redirectable nad demonstrating no aggressive behaviors. 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 The patient's wound is well healed and sutures have been able to eat removed. He underwent colonoscopy 05/01 and determined that he has an ileostomy and not a colostomy. Follow-up CT abdomen and pelvis demonstrated a near total colectomy with anetrolateral sigmoid anastomosis in the left low quadrant. He was also found to have a spigelian hernia without obstruction. Dr. Farah determined that at this time patient is not a candidate for reversal. He would require a ileo rectal anastomosis and would almost certainly have dumping syndrome and his wound is not yet fully healed. At this point in time patient is appropriate for discharge and we are working on developing a safe discharge plan. Pt seen and examined. Only complaint is fatigue and weakness today. Objective - Vital Signs Vital signs: Vital Signs Temp 97.7 F 05/05/18 12:26 Pulse 79 05/05/18 12:26 Resp 18 05/05/18 12:26 BP 141/88 05/05/18 12:26 Pulse Ox 96 05/05/18 12:26 Intake & Output 05/04/18 05/05/18 05/05/18 18:59 06:59 18:59 Intake Total 1300 1620 Output Total 250 Balance 1050 1620 Weight 80.739 kg Intake: Oral 1300 1620 Output: Stool 250 Other: Voiding Method Toilet Toilet # Voids 2 1 # Bowel Movements 3 1 - Exam General: non toxic, no distress, appears at stated age, disheveled Derm: warm, dry Head: atraumatic, normocephalic, symmetric Eyes: EOMI, no lid lag, anicteric sclera Cardiovascular: S1S2 reg, no murmur, positive posterior tibial pulse bilateral, Lungs: CTA bilateral, no rhonchi, no rales , no accessory muscle use Psych: Alert, oriented, appropriate affect - Labs CBC & Chem 7: 05/02/18 05:16 05/02/18 05:16 Assessment and Plan Assessment: Stage IV pressure wound, base on stage on initial admission 04/04/18 - present on admission, healing well - Therahoney and Optifoam change once daily - Frequent turns - dietitian recs Ileostomy - No plans for reveral at this time, out Patient follow-up with Dr. Alvarenga - Ostomy care GERD - PPI Tobacco abuse - cessation - nicotine replacement Schizophrenia, stable - Continue with clozaril, klonopin, and deseryl CODE STATUS:Full DVT prophylaxis:SCDs Discussed with: Patient, nursing, Anticipated discharge: DAVID Anticipated discharge place: to be determined. Patient has not been accepted to a facility at this time A total of 25 minutes was spent on the care of this complex patient more than 50 % of the time was spent in counseling and care coordination.
[2018-05-05] MEDS: MELATONIN 3 MG TABLET PO PRN (20:03)
[2018-05-06] MEDS: MULTIVITAMINS, THERA 1 EACH TAB PO SCH (06:07)
[2018-05-06] MEDS: clonazePAM 1 MG TAB PO SCH ×3 (06:08→21:02)
[2018-05-06 08:16] LABS: Carbon Dioxide 26 mmol/L (22-30); Chloride 111 mmol/L (98-107); Glucose 99 mg/dL (74-99); Potassium 4.3 mmol/L (3.5-5.1); Sodium 143 mmol/L (137-145)
[2018-05-06 08:17] LABS: ALT 29 U/L (21-72); AST 18 U/L (17-59); Albumin 3.8 g/dL (3.5-5.0); Alkaline Phosphatase 70 U/L (38-126); Anion Gap 6 mmol/L; Blood Urea Nitrogen 20 mg/dL (9-20); Calcium 9.5 mg/dL (8.4-10.2); Total Bilirubin 0.2 mg/dL (0.2-1.3); Total Protein 6.2 g/dL (6.3-8.2)
--- NOTE | 2018-05-06 08:19 | P.PN ---
Subjective Progress Note Date: 05/06/18 Principal diagnosis: Patient is a 48-year-old male with a past medical history of schizophrenia, bipolar disorder, and sacral pressure ulcer who was admitted to the medical floor from the mental health unit for colostomy reversal. Patient has been on the mental health unit for 27 days. He was originally admitted for aggressive behavior. This has improved significantly with the initiation of clozaril and titration of his other medications. He was discharged from the mental health unit as he is easily redirectable nad demonstrating no aggressive behaviors. 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 The patient's wound is well healed and sutures have been able to eat removed. He underwent colonoscopy 05/01 and determined that he has an ileostomy and not a colostomy. Follow-up CT abdomen and pelvis demonstrated a near total colectomy with anetrolateral sigmoid anastomosis in the left low quadrant. He was also found to have a spigelian hernia without obstruction. Dr. Farah determined that at this time patient is not a candidate for reversal. He would require a ileo rectal anastomosis and would almost certainly have dumping syndrome and his wound is not yet fully healed. At this point in time patient is appropriate for discharge and we are working on developing a safe discharge plan. Patient resting well today, reports that he's been up and ambulatory, reports some output and his ileostomy. Has not had breakfast yet but plans to eat this morning. Denies any other complaints. No acute events overnight Objective - Vital Signs Vital signs: Vital Signs Temp 98.4 F 05/06/18 05:00 Pulse 74 05/06/18 05:00 Resp 16 05/06/18 05:00 BP 125/81 05/06/18 05:00 Pulse Ox 97 05/06/18 05:00 Intake & Output 05/05/18 05/06/18 05/06/18 18:59 06:59 18:59 Intake Total 780 Balance 780 Intake: Oral 780 Other: Voiding Method Toilet # Voids 1 1 # Bowel Movements 1 - Exam General: non toxic, no distress, appears at stated age, disheveled Derm: warm, dry Head: atraumatic, normocephalic, symmetric Eyes: EOMI, no lid lag, anicteric sclera Cardiovascular: S1S2 reg, no murmur, positive posterior tibial pulse bilateral, Lungs: CTA bilateral, no rhonchi, no rales , no accessory muscle use Psych: Alert, oriented, appropriate affect - Labs CBC & Chem 7: 05/02/18 05:16 05/02/18 05:16 Assessment and Plan Assessment: Stage IV pressure wound, base on stage on initial admission 04/04/18 - present on admission, healing well - Therahoney and Optifoam change once daily - Frequent turns - dietitian recs Ileostomy - No plans for reveral at this time, out Patient follow-up with Dr. Alvarenga - Ostomy care GERD - PPI Tobacco abuse - cessation - nicotine replacement Schizophrenia, stable - Continue with clozaril, klonopin, and deseryl CODE STATUS:Full DVT prophylaxis:SCDs Discussed with: Patient, nursing, Anticipated discharge: DAVID Anticipated discharge place: to be determined. Patient has not been accepted to a facility at this time A total of 25 minutes was spent on the care of this complex patient more than 50 % of the time was spent in counseling and care coordination.
[2018-05-06 08:30] LABS: Anisocytosis Slight; Basophils % (A) 1 %; Eosinophils # (A) 0.1 k/uL (0-0.7); Eosinophils % (A) 3 %; HCT 35.9 % (39.0-53.0); Hypochromasia Marked; Lymphocytes # (A) 1.3 k/uL (1.0-4.8); Lymphocytes % (A) 35 %; MCH 27.3 pg (25.0-35.0); MCHC 30.7 g/dL (31.0-37.0); MCV 88.8 fL (80.0-100.0); Mean Platelet Volume 10.4; Monocytes # (A) 0.3 k/uL (0-1.0); Monocytes % (A) 7 %; Neutrophils % (A) 51 %; Platelet Count 195 k/uL (150-450); RBC 4.04 m/uL (4.30-5.90); RDW 16.2 % (11.5-15.5); WBC 3.9 k/uL (3.8-10.6)
[2018-05-06] MEDS: NICOTINE 14MG/24HR PATCH TRANSDERM SCH (12:20)
[2018-05-06] MEDS: PANTOPRAZOLE 40 MG TABLET PO SCH (12:20)
[2018-05-06] MEDS: cloZAPine 100 MG TAB PO SCH ×2 (12:21→21:02)
[2018-05-06] MEDS: SODIUM CHLORIDE 0.9% 1,000 ML IV SCH (12:58)
[2018-05-06] MEDS: MELATONIN 3 MG TABLET PO PRN (21:31)
[2018-05-07] MEDS: SODIUM CHLORIDE 0.9% 1,000 ML IV SCH ×2 (03:16→11:45)
[2018-05-07] MEDS: clonazePAM 1 MG TAB PO SCH ×3 (06:15→21:40)
[2018-05-07] MEDS: MULTIVITAMINS, THERA 1 EACH TAB PO SCH (06:15)
[2018-05-07] MEDS: cloZAPine 100 MG TAB PO SCH ×2 (07:32→21:40)
[2018-05-07] MEDS: PANTOPRAZOLE 40 MG TABLET PO SCH (07:32)
[2018-05-07] MEDS: NICOTINE 14MG/24HR PATCH TRANSDERM SCH (07:32)
[2018-05-07] MEDS: MELATONIN 3 MG TABLET PO PRN (21:40)
[2018-05-08] MEDS: SODIUM CHLORIDE 0.9% 1,000 ML IV SCH (05:46)
[2018-05-08] MEDS: clonazePAM 1 MG TAB PO SCH ×2 (05:46→14:12)
[2018-05-08] MEDS: MULTIVITAMINS, THERA 1 EACH TAB PO SCH (05:46)
--- NOTE | 2018-05-08 09:07 | P.PN ---
Subjective Progress Note Date: 05/07/18 Principal diagnosis: Patient is a 48-year-old male with a past medical history of schizophrenia, bipolar disorder, and sacral pressure ulcer who was admitted to the medical floor from the mental health unit for colostomy reversal. Patient has been on the mental health unit for 27 days. He was originally admitted for aggressive behavior. This has improved significantly with the initiation of clozaril and titration of his other medications. He was discharged from the mental health unit as he is easily redirectable nad demonstrating no aggressive behaviors. 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 The patient's wound is well healed and sutures have been able to eat removed. He underwent colonoscopy 05/01 and determined that he has an ileostomy and not a colostomy. Follow-up CT abdomen and pelvis demonstrated a near total colectomy with anetrolateral sigmoid anastomosis in the left low quadrant. He was also found to have a spigelian hernia without obstruction. Dr. Farah determined that at this time patient is not a candidate for reversal. He would require a ileo rectal anastomosis and would almost certainly have dumping syndrome and his wound is not yet fully healed. At this point in time patient is appropriate for discharge and we are working on developing a safe discharge plan. Patient resting well today, reports that he's been up and ambulatory, reports some output and his ileostomy. Had a good breakfast this am. Denies any other complaints. No acute events overnight Objective - Vital Signs Vital signs: Vital Signs Temp 97.6 F 05/08/18 05:04 Pulse 72 05/08/18 05:04 Resp 16 05/08/18 05:04 BP 124/79 05/08/18 05:04 Pulse Ox 95 05/08/18 05:04 Intake & Output 05/07/18 05/08/18 05/08/18 18:59 06:59 18:59 Intake Total 1150 1800 Output Total 250 250 Balance 900 1550 Weight 80.739 kg Intake: Oral 1150 1800 Output: Stool 250 250 Other: Voiding Method Toilet Toilet # Voids 2 1 # Bowel Movements 2 1 - Exam General: non toxic, no distress, appears at stated age, disheveled Derm: warm, dry Head: atraumatic, normocephalic, symmetric Eyes: EOMI, no lid lag, anicteric sclera Cardiovascular: S1S2 reg, no murmur, positive posterior tibial pulse bilateral, Lungs: CTA bilateral, no rhonchi, no rales , no accessory muscle use Psych: Alert, oriented, appropriate affect - Labs CBC & Chem 7: 05/06/18 07:21 05/06/18 07:21 Assessment and Plan Assessment: Stage IV pressure wound, base on stage on initial admission 04/04/18 - present on admission, healing well - Therahoney and Optifoam change once daily - Frequent turns - dietitian recs Ileostomy - No plans for reveral at this time, out Patient follow-up with Dr. Alvarenga - Ostomy care GERD - PPI Tobacco abuse - cessation - nicotine replacement Schizophrenia, stable - Continue with clozaril, klonopin, and deseryl CODE STATUS:Full DVT prophylaxis:SCDs Discussed with: Patient, nursing, Anticipated discharge: DAVID Anticipated discharge place: to be determined. Patient has not been accepted to a facility at this time A total of 25 minutes was spent on the care of this complex patient more than 50 % of the time was spent in counseling and care coordination.
[2018-05-08] MEDS: PANTOPRAZOLE 40 MG TABLET PO SCH (09:51)
[2018-05-08] MEDS: NICOTINE 14MG/24HR PATCH TRANSDERM SCH (09:51)
[2018-05-08] MEDS: cloZAPine 100 MG TAB PO SCH (09:58)
[2018-05-08 12:21] VITALS: BP 124/84; PULSE 79; RESP 18; TEMP 97.7
--- NOTE | 2018-05-08 13:10 | P.DS ---
Providers Date of admission: 05/01/18 11:32 Expected date of discharge: 05/08/18 Attending physician: Huma Marsh DO Consults: 05/01/18 12:47 Consult Physician Routine Consulting Provider: Eric Farah Consult Reason/Comments: colostomy reversal Do you want consulting provider notified?: Yes Primary care physician: Stated None Hospital Course: Discharge diagnoses Stage IV pressure wound, base on stage on initial admission 04/04/18 Ileostomy GERD Tobacco abuse Schizophrenia, stable Patient is a 48-year-old male with a past medical history of schizophrenia, bipolar disorder, and sacral pressure ulcer who was admitted to the medical floor from the mental health unit for colostomy reversal. Patient has been on the mental health unit for 27 days. He was originally admitted for aggressive behavior. This has improved significantly with the initiation of clozaril and titration of his other medications. He was discharged from the mental health unit as he is easily redirectable nad demonstrating no aggressive behaviors. 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 The patient's wound is well healed and sutures have been able to eat removed. He underwent colonoscopy 05/01 and determined that he has an ileostomy and not a colostomy. Follow-up CT abdomen and pelvis demonstrated a near total colectomy with anetrolateral sigmoid anastomosis in the left low quadrant. He was also found to have a spigelian hernia without obstruction. Dr. Farah determined that at this time patient is not a candidate for reversal. He would require a ileo rectal anastomosis and would almost certainly have dumping syndrome and his wound is not yet fully healed. The patient was subsequently discharged to [facility] after being approved from insurance and guardian standpoint. This discharge process took approximately 35 minutes Focused exam Abdominal: Normoactive bowel sounds, right-sided ileostomy in place with good output, abdomen soft nontender nondistended Patient Condition at Discharge: Good Plan - Discharge Summary Discharge Rx Participant: No New Discharge Prescriptions: Continue Multivitamins, Thera [Multivitamin (formulary)] 1 tab PO DAILY@0600 cloZAPine [Clozaril] 100 mg PO DAILY #30 tab cloZAPine [Clozaril] 200 mg PO HS #60 tab Nicotine 21Mg/24Hr Patch [Habitrol] 1 patch TRANSDERM DAILY #10 patch traZODone HCL [Desyrel] 50 mg PO HS@1999 PRN #30 tab PRN Reason: Insomnia clonazePAM [KlonoPIN] 1 mg PO TID@00,1399,1999 #45 tab Discharge Medication List Multivitamins, Thera [Multivitamin (formulary)] 1 tab PO DAILY@0600 04/02/18 [ History] Nicotine 21Mg/24Hr Patch [Habitrol] 1 patch TRANSDERM DAILY #10 patch 04/24/18 [ Rx] cloZAPine [Clozaril] 100 mg PO DAILY #30 tab 04/24/18 [Rx] cloZAPine [Clozaril] 200 mg PO HS #60 tab 04/24/18 [Rx] traZODone HCL [Desyrel] 50 mg PO HS@1999 PRN #30 tab 04/24/18 [Rx] clonazePAM [KlonoPIN] 1 mg PO TID@599,1399,1999 #45 tab 05/08/18 [Rx] Patient Instructions/Handouts: Clonazepam (By mouth), Ileostomy Care (DC), Schizophrenia (DC), Chronic Wound Care (DC) Activity/Diet/Wound Care/Special Instructions: Follow-up surgeon Dr. Alvarenga Pager [phone] Office number: [phone] Regular diet (likes coke) Activity as tolerated Wound care-Daily dressing change with Thera Honey, Saline gauze, and Optifoam daily. Discharge Disposition: TRANSFER TO SNF/ECF
== END 2018-05-08 16:40 | DRG 393 ==
LOC: 3NMEDONC 11:32
PROVIDERS: ADMIT Internal Medicine; ATTEND Internal Medicine
DX: Z43.2 Encounter for attention to ileostomy (principal); L89.154 Pressure ulcer of sacral region, stage 4; K21.9 Gastro-esophageal reflux disease without esophagitis; K43.9 Ventral hernia without obstruction or gangrene; F20.9 Schizophrenia, unspecified; Z71.6 Tobacco abuse counseling; Z79.899 Other long term (current) drug therapy; Z53.8 Procedure and treatment not carried out for other reasons
CPT/HCPCS: 80048; 80053; 83735; 84100; 85025; 85610

== ENCOUNTER 2018-05-01 11:05 | Day surgery (SDC) | payer MEDICARE, OTHER ==
[~2018-05-01 11:05] MED LIST: LIDOCAINE 1% INJ 10MG/ML (20 ML MDV) ONE; PROPOFOL 10 MG/ML 20 ML VIAL IV ONE
--- NOTE | 2018-05-01 11:06 | P.GSHP ---
History of Present Illness H&P Date: 05/01/18 Chief Complaint: History of colostomy, diverticulitis, decubitus ulcer This a 48-year-old male who presents today for colonoscopy. Patient a previous diverting colostomy for diverticulitis and decubitus ulcer. He presents today for colonoscopy. He is scheduled for reversal colostomy tomorrow. Past Medical History Past Medical History: No Reported History Additional Past Medical History / Comment(s): Sacral pressure ulcer History of Any Multi-Drug Resistant Organisms: None Reported Additional Past Surgical History / Comment(s): Colostomy, flap for sacral pressure Past Psychological History: Bipolar, Schizophrenia Smoking Status: Unknown if ever smoked Past Alcohol Use History: None Reported, Daily Additional Past Alcohol Use History / Comment(s): 2 24 ounce beers daily Past Drug Use History: None Reported - Past Family History Father History Unknown: Yes Additional Family Medical History / Comment(s): patient does not know medical history Mother History Unknown: Yes Additional Family Medical History / Comment(s): patient does not know medical history Medications and Allergies Home Medications Medication Instructions Recorded Confirmed Type Multivitamins, Thera [Multivitamin 1 tab PO DAILY@0600 04/02/18 04/02/18 History (formulary)] Nicotine 21Mg/24Hr Patch [Habitrol] 1 patch TRANSDERM DAILY #10 patch 04/24/18 Rx cloZAPine [Clozaril] 100 mg PO DAILY #30 tab 04/24/18 Rx cloZAPine [Clozaril] 200 mg PO HS #60 tab 04/24/18 Rx clonazePAM [KlonoPIN] 1 mg PO TID@0600,1400,1999 #45 tab 04/24/18 Rx traZODone HCL [Desyrel] 50 mg PO HS@1999 PRN #30 tab 04/24/18 Rx Allergies Allergy/AdvReac Type Severity Reaction Status Date / Time divalproex sodium Allergy Unknown Verified 04/04/18 17:20 [From Depakote] ibuprofen Allergy Unknown Verified 04/04/18 17:20 Surgical - Exam - General well developed, no distress - Eyes PERRL - ENT normal pinna - Neck no masses - Respiratory normal expansion - Cardiovascular Rhythm: regular - Abdomen Colostomy left lower quadrant Abdomen: soft, non tender Assessment and Plan Assessment: History of decubitus ulcer of diverticula is. Patient will undergo reversal of colostomy in the a.m. He'll undergo colonoscopy today.
[2018-05-01] MEDS ORDERED: SODIUM CHLORIDE 0.9% 1,000 ML IV ONE (11:07)
--- NOTE | 2018-05-01 11:21 | P.OP ---
Date of Procedure: 05/01/18 Preoperative Diagnosis: History of decubitus ulcer and diverticulitis. Postoperative Diagnosis: Rectal stump 15 cm with no evidence of inflammation. Ileostomy right lower quadrant Procedure(s) Performed: Colonoscopy Anesthesia: MAC Surgeon: Eric Farah Pathology: none sent Condition: stable Disposition: PACU Description of Procedure: The patient's placed on the endoscopy table in the lateral position. He received IV sedation. Digital rectal exam was performed which revealed small amount stool in the rectal vault. The colonoscope was placed the patient's anus and passed through the rectum. The rectum measured for a 15 cm in length. Scope was then withdrawn. There is no obvious abnormalities rectum. Scope was withdrawn. The patient had a in the right lower quadrant. This was cannulized colonoscope it became obvious that this was a ileostomy. The scope was advanced approximately 20 cm. There is no abnormalities noted. Scope was withdrawn for patient.
[2018-05-01] MEDS ORDERED: IOPAMIDOL-300 CONTRAST 30 ML VIAL (ORAL USE) PO PRN (11:24)
== END 2018-05-01 11:32 | disposition other institution (70) ==
LOC: ORWHC2ENDO 11:05
PROVIDERS: ATTEND Surgery
DX: K57.90 Diverticulosis of intestine, part unspecified, without perforation or abscess without bleeding (principal); Z93.3 Colostomy status; Z79.899 Other long term (current) drug therapy; Z88.6 Allergy status to analgesic agent; Z88.8 Allergy status to other drugs, medicaments and biological substances
CPT/HCPCS: 44388; J2001; J2704